=== PATIENT | male | born 1975 | race Caucasian/White ===

== ENCOUNTER 2018-02-10 17:00 | Observation (INO) | payer SELFPAY ==
[2018-02-10] MEDS ORDERED: ACETAMINOPHEN 500 MG TAB ONE (17:41)
--- NOTE | 2018-02-10 18:10 | ER ---
Nurse's Notes [facility] Name: Sajan Meléndez Age: 42 yrs Sex: Male : 1975 Arrival Date: 02/10/2018 Time: 17:02 Bed 6 Private MD: Diagnosis: Cutaneous abscess of other sites-right axilla, deep;Fever, unspecified;Hypokalemia Presentation: 02/10 17:16 Presenting complaint: Patient states: Abscess to right axilla that started this AM. aj Transition of care: patient was not received from another setting of care. Onset of symptoms was February 10, 2018. Care prior to arrival: None. 17:16 Method Of Arrival: Ambulatory aj 17:16 Acuity: DELMI 3 aj Triage Assessment: 17:17 General: Appears in no apparent distress. uncomfortable, Behavior is calm, cooperative, aj appropriate for age, Smells of alcohol. Pain: Complains of pain in right axilla. Neuro: Level of Consciousness is awake, alert, obeys commands, Oriented to person, place, time, situation. Respiratory: Airway is patent Respiratory effort is even, unlabored, Respiratory pattern is regular, symmetrical. Derm: Skin is intact, is healthy with good turgor, Skin is pink, warm \T\ dry. normal, Abscess located on right axilla has no drainage, is red. Historical: - Allergies: 17:17 Poultry; aj - Home Meds: 17:17 Klonopin 1 mg Oral tab 1 tab 2 times per day [Active]; propranolol 120 mg Oral Cs24 1 aj cap once daily [Active]; Topamax 100 mg Oral tab 1 tab 2 times per day [Active]; Primidone Oral [Active]; - PMHx: 17:17 Anxiety; ESSENTIAL TREMORS; PTSD; ulcerative colitis; aj - PSHx: 17:17 Appendectomy; nose reset x 7; foot; Knee surgery; aj - Immunization history:: Last tetanus immunization: unknown. - Social history:: Smoking status: Patient uses tobacco products, smokes one pack cigarettes per day. - Family history:: not pertinent. Screenin:30 Abuse screen: Denies threats or abuse. Denies injuries from another. Nutritional ch screening: No deficits noted. Tuberculosis screening: No symptoms or risk factors identified. Fall Risk None identified. Assessment: 18:00 General: Appears in no apparent distress. uncomfortable, Behavior is calm, cooperative, ch appropriate for age. Pain: Complains of pain in right axilla Pain currently is 9 out of 10 on a pain scale. Pain began gradually, 4 hours ago. 18:00 Neuro: No deficits noted. Respiratory: Airway is patent Respiratory effort is even, ch unlabored, Breath sounds are clear bilaterally. GI: No signs and/or symptoms were reported involving the gastrointestinal system. : No signs and/or symptoms were reported regarding the genitourinary system. Derm: Skin is diaphoretic, Skin is pale, Skin temperature is hot Abscess located on right axilla is pt abscess is approx soft ball sized, or a little larger is hot to touch, is red, is raised, tender to palpation. 19:05 Reassessment: Patient appears in no apparent distress at this time. No changes from previously documented assessment. Patient and/or family updated on plan of care and expected duration. Pain level reassessed. Patient is alert, oriented x 3, equal unlabored respirations, skin warm/dry/pink. pt states the pain medication worked for a small amount of time then it stopped working. erp notified, pt medicated per orders. 19:54 Reassessment: Patient appears in no apparent distress at this time. Patient is alert, aa1 oriented x 3, equal unlabored respirations, skin warm/dry/pink. Report given to Carly on 2nd Patient states feeling better. Vital Signs: 17:17 BP 140 / 88; Pulse 109; Resp 21; Temp 101.4; Pulse Ox 97% on R/A; Weight 88 kg; Height aj 5 ft. 7 in. (170.18 cm); Pain 10/10; 18:30 BP 135 / 84; Pulse 94; Resp 22; Pulse Ox 99% on R/A; ch 19:41 BP 110 / 70; Pulse 87; Resp 18; Temp 100.2(O); Pulse Ox 99% on R/A; Pain 6/10; aa1 17:17 Body Mass Index 30.38 (88.00 kg, 170.18 cm) ED Course: 17:02 Patient arrived in ED. mr 17:16 Triage completed. 17:17 Arm band placed on left wrist. Patient placed in waiting room. mario 17:21 Juan George MD is Attending Physician. luz 17:22 Michelle Doe, ALEXANDREA is Primary Nurse. ch 18:08 Mick Suresh MD is Hospitalizing Provider. luz 18:15 Inserted saline lock: 20 gauge in left antecubital area, using aseptic technique. Blood hb collected. 18:17 X-ray completed. Portable x-ray completed in exam room. bb2 18:18 XRAY Chest (1 view) In Process Unspecified. EDMS 18:30 Patient has correct armband on for positive identification. Bed in low position. Call light in reach. Side rails up X 1. Adult w/ patient. Pulse ox on. NIBP on. one cool blanket placed on pt. 18:30 No provider procedures requiring assistance completed. ch 18:43 Ultrasound completed. Patient tolerated well. aa4 19:26 Report given to Joan Braxton. ch 19:54 Patient admitted, IV remains in place. aa1 Administered Medications: 17:55 Drug: Tylenol 1000 mg Route: PO; hb 19:21 Follow up: Response: No adverse reaction; Marked relief of symptoms ch 18:25 Drug: morphine 4 mg Route: IVP; Site: left antecubital; hb 19:21 Follow up: Response: No adverse reaction; No change in condition ch 18:25 Drug: Zofran 4 mg Route: IVP; Site: right antecubital; hb 19:20 Follow up: Response: No adverse reaction; Marked relief of symptoms ch 18:50 Drug: NS 0.9% (30 ml/kg) 2600 ml Route: IV; Rate: bolus; Site: left antecubital; ch 19:58 Follow up: IV Status: Infusion continued upon admission aa1 18:50 Drug: vancoMYCIN 1 grams Route: IVPB; Infused Over: 2 hrs; Site: left antecubital; ch 19:58 Follow up: IV Status: Infusion continued upon admission aa1 19:10 Drug: Clindamycin 900 mg Route: IVPB; Infused Over: 30 mins; Site: right antecubital; aa1 19:59 Follow up: IV Status: Completed infusion aa1 19:12 Drug: morphine 4 mg Route: IVP; Site: left antecubital; ch 19:41 Follow up: Response: No adverse reaction; Pain is decreased aa1 19:20 Drug: Zofran 4 mg Route: IVP; Site: left antecubital; ch 19:40 Follow up: Response: No adverse reaction; Nausea is decreased aa1 19:40 CANCELLED (Other Intervention Used; liquid unavailable): Potassium Chloride 40 mEq PO aa1 once 19:40 Drug: Potassium Chloride 40 mEq Route: PO; aa1 19:56 Follow up: Response: No adverse reaction aa1 19:58 Not Given (Duplicate Order): morphine 2 mg IVP once aa1 Outcome: 18:10 Decision to Hospitalize by Provider. [facility] 19:54 Admitted to Med/surg accompanied by tech, family with patient, via wheelchair, room aa1 207, with chart, Report called to Carly 19:54 Condition: stable 19:54 Instructed on the need for admit, Demonstrated understanding of instructions. 19:59 Patient left the ED. aa1 Signatures: Dispatcher [employer] EDMichelle Nance, RN Joan La ch, RN RN aa1 Luz Hoyt RN Juan Parker MD MD cha Rivera, Maria Luz Villar aa4 Prachi Purcell RN RN hb Bock, Brittany bb2
--- NOTE | 2018-02-10 18:10 | EDPHYS ---
Physician Documentation [facility] Name: Sajan Meléndez Age: 42 yrs Sex: Male : 1975 Arrival Date: 02/10/2018 Time: 17:02 Bed 6 Private MD: ED Physician Juan George HPI: 02/10 17:53 This 42 yrs old Male presents to ER via Ambulatory with complaints of Abscess.luz 17:53 the patient presents with a swollen area of the right arm and right axilla. luz Description: erythematous, fluctuant, hot, swollen. Onset: The symptoms/episode began/occurred 2 day(s) ago. Possible cause(s): unknown. Associated signs and symptoms: The patient has no apparent associated signs or symptoms. Severity of symptoms: At their worst the symptoms were mild, moderate, in the emergency department the symptoms are unchanged. The patient has not experienced similar symptoms in the past. Historical: - Allergies: 17:17 Poultry; aj - Home Meds: 17:17 Klonopin 1 mg Oral tab 1 tab 2 times per day [Active]; propranolol 120 mg Oral Cs24 1 aj cap once daily [Active]; Topamax 100 mg Oral tab 1 tab 2 times per day [Active]; Primidone Oral [Active]; - PMHx: 17:17 Anxiety; ESSENTIAL TREMORS; PTSD; ulcerative colitis; aj - PSHx: 17:17 Appendectomy; nose reset x 7; foot; Knee surgery; aj - Immunization history:: Last tetanus immunization: unknown. - Social history:: Smoking status: Patient uses tobacco products, smokes one pack cigarettes per day. - Family history:: not pertinent. ROS: 17:53 Eyes: Negative for injury, pain, redness, and discharge, ENT: Negative for injury, luz pain, and discharge, Neck: Negative for injury, pain, and swelling, Cardiovascular: Negative for chest pain, palpitations, and edema, Respiratory: Negative for shortness of breath, cough, wheezing, and pleuritic chest pain, Abdomen/GI: Negative for abdominal pain, nausea, vomiting, diarrhea, and constipation, Back: Negative for injury and pain, : Negative for injury, bleeding, discharge, and swelling, Skin: Negative for injury, rash, and discoloration, Neuro: Negative for headache, weakness, numbness, tingling, and seizure, Psych: Negative for depression, anxiety, suicide ideation, homicidal ideation, and hallucinations, Allergy/Immunology: Negative for hives, rash, and allergies, Endocrine: Negative for neck swelling, polydipsia, polyuria, polyphagia, and marked weight changes, Hematologic/Lymphatic: Negative for swollen nodes, abnormal bleeding, and unusual bruising. 17:53 Constitutional: Positive for body aches, chills. 17:53 MS/extremity: Positive for decreased range of motion, pain, swelling, tenderness, warmth, of the right arm. Exam: 17:53 Constitutional: This is a well developed, well nourished patient who is awake, alert, luz and in no acute distress. Head/Face: Normocephalic, atraumatic. Eyes: Pupils equal round and reactive to light, extra-ocular motions intact. Lids and lashes normal. Conjunctiva and sclera are non-icteric and not injected. Cornea within normal limits. Periorbital areas with no swelling, redness, or edema. ENT: Nares patent. No nasal discharge, no septal abnormalities noted. Tympanic membranes are normal and external auditory canals are clear. Oropharynx with no redness, swelling, or masses, exudates, or evidence of obstruction, uvula midline. Mucous membranes moist. Neck: Trachea midline, no thyromegaly or masses palpated, and no cervical lymphadenopathy. Supple, full range of motion without nuchal rigidity, or vertebral point tenderness. No Meningismus. Chest/axilla: Normal chest wall appearance and motion. Nontender with no deformity. No lesions are appreciated. Cardiovascular: Regular rate and rhythm with a normal S1 and S2. No gallops, murmurs, or rubs. Normal PMI, no JVD. No pulse deficits. Respiratory: Lungs have equal breath sounds bilaterally, clear to auscultation and percussion. No rales, rhonchi or wheezes noted. No increased work of breathing, no retractions or nasal flaring. Abdomen/GI: Soft, non-tender, with normal bowel sounds. No distension or tympany. No guarding or rebound. No evidence of tenderness throughout. Back: No spinal tenderness. No costovertebral tenderness. Full range of motion. Male : Normal genitalia with no discharge or lesions. MS/ Extremity: Pulses equal, no cyanosis. Neurovascular intact. Full, normal range of motion. Neuro: Awake and alert, GCS 15, oriented to person, place, time, and situation. Cranial nerves II-XII grossly intact. Motor strength 5/5 in all extremities. Sensory grossly intact. Cerebellar exam normal. Normal gait. Psych: Awake, alert, with orientation to person, place and time. Behavior, mood, and affect are within normal limits. 17:53 Skin: cellulitis, that is mild, that is moderate, induration, that is moderate is noted. Vital Signs: 17:17 BP 140 / 88; Pulse 109; Resp 21; Temp 101.4; Pulse Ox 97% on R/A; Weight 88 kg; Height aj 5 ft. 7 in. (170.18 cm); Pain 10/10; 18:30 BP 135 / 84; Pulse 94; Resp 22; Pulse Ox 99% on R/A; ch 19:41 BP 110 / 70; Pulse 87; Resp 18; Temp 100.2(O); Pulse Ox 99% on R/A; Pain 6/10; aa1 17:17 Body Mass Index 30.38 (88.00 kg, 170.18 cm) aj MDM: 17:21 Patient medically screened. luz 17:22 Patient medically screened. [facility] 17:53 Data reviewed: vital signs, nurses notes, lab test result(s), EKG, radiologic studies, [facility] plain films, ultrasound. 02/10 17:53 Order name: Basic Metabolic Panel [facility] 02/10 17:53 Order name: BNP [facility] 02/10 17:53 Order name: CBC with Diff; Complete Time: 19:22 luz 02/10 17:53 Order name: Ckmb; Complete Time: 19:22 luz 02/10 17:53 Order name: CPK; Complete Time: 19:22 [facility] 02/10 17:53 Order name: LFT's; Complete Time: 19:22 luz 02/10 17:53 Order name: Magnesium; Complete Time: 19:22 luz 02/10 17:53 Order name: PT-INR; Complete Time: 19:22 luz 02/10 17:53 Order name: Ptt, Activated; Complete Time: 19:22 luz 02/10 17:53 Order name: Troponin (emerg Dept Use Only); Complete Time: 19:22 luz 02/10 17:53 Order name: Basic Metabolic Panel; Complete Time: 19:22 EDMS 02/10 17:53 Order name: BNP B-Type Natriuretic Peptide; Complete Time: 19:22 EDMS 02/10 18:17 Order name: Basic Metabolic Panel EDMS 02/10 18:17 Order name: Basic Metabolic Panel EDMS 02/10 17:53 Order name: XRAY Chest (1 view); Complete Time: 19:22 luz 02/10 17:53 Order name: US Extrmty Nonvasular Limited luz 02/10 18:17 Order name: CBC with Automated Diff EDMS 02/10 18:17 Order name: CBC with Automated Diff EDMS 02/10 18:17 Order name: Lipase EDMS 02/10 18:17 Order name: Liver (Hepatic) Function EDMS 02/10 18:17 Order name: Liver (Hepatic) Function EDMS 02/10 18:24 Order name: Lactate 02/10 19:04 Order name: US; Complete Time: 19:22 EDMS 02/10 19:09 Order name: Lactate; Complete Time: 19:22 EDMS 02/10 17:53 Order name: EKG; Complete Time: 17:54 luz 02/10 17:53 Order name: Cardiac monitoring; Complete Time: 18:26 luz 02/10 17:53 Order name: EKG - Nurse/Tech; Complete Time: 19:35 luz 02/10 17:53 Order name: IV Saline Lock; Complete Time: 18:26 luz 02/10 17:53 Order name: Labs collected and sent; Complete Time: 18:26 luz 02/10 17:53 Order name: O2 Per Protocol; Complete Time: 18:26 luz 02/10 17:53 Order name: O2 Sat Monitoring; Complete Time: 18:26 luz 02/10 18:17 Order name: CONS Pharmacy Consult EDNE 02/10 18:17 Order name: NPO EDNE 02/10 19:25 Order name: PO challenge; Complete Time: 19:39 luz Administered Medications: 17:55 Drug: Tylenol 1000 mg Route: PO; hb 19:21 Follow up: Response: No adverse reaction; Marked relief of symptoms ch 18:25 Drug: morphine 4 mg Route: IVP; Site: left antecubital; hb 19:21 Follow up: Response: No adverse reaction; No change in condition ch 18:25 Drug: Zofran 4 mg Route: IVP; Site: right antecubital; hb 19:20 Follow up: Response: No adverse reaction; Marked relief of symptoms ch 18:50 Drug: NS 0.9% (30 ml/kg) 2600 ml Route: IV; Rate: bolus; Site: left antecubital; ch 19:58 Follow up: IV Status: Infusion continued upon admission aa1 18:50 Drug: vancoMYCIN 1 grams Route: IVPB; Infused Over: 2 hrs; Site: left antecubital; ch 19:58 Follow up: IV Status: Infusion continued upon admission aa1 19:10 Drug: Clindamycin 900 mg Route: IVPB; Infused Over: 30 mins; Site: right antecubital; aa1 19:59 Follow up: IV Status: Completed infusion aa1 19:12 Drug: morphine 4 mg Route: IVP; Site: left antecubital; ch 19:41 Follow up: Response: No adverse reaction; Pain is decreased aa1 19:20 Drug: Zofran 4 mg Route: IVP; Site: left antecubital; ch 19:40 Follow up: Response: No adverse reaction; Nausea is decreased aa1 19:40 CANCELLED (Other Intervention Used; liquid unavailable): Potassium Chloride 40 mEq PO aa1 once 19:40 Drug: Potassium Chloride 40 mEq Route: PO; aa1 19:56 Follow up: Response: No adverse reaction aa1 19:58 Not Given (Duplicate Order): morphine 2 mg IVP once aa1 Disposition: 02/10/18 18:10 Hospitalization ordered by Mick Suresh for Observation. Preliminary diagnosis are Cutaneous abscess of other sites - right axilla, deep, Fever, unspecified, Hypokalemia. - Bed requested for Telemetry/MedSurg (observation). - Status is Observation. aa1 - Condition is Fair. - Problem is new. - Symptoms are unchanged. UTI on Admission? No Signatures: Dispatcher [employer] EDMichelle Nance RN RN ch Lewis, Kimberly, RN RN kl Kern, Alissa, RN RN aa1 Luz Hoyt RN RN aj Anderson, Corey, MD MD cha Baxter, Heather, RN RN hb Corrections: (The following items were deleted from the chart) 19:40 19:25 Potassium Chloride Liquid 40 mEq PO once ordered. luz [facility]
[2018-02-10] MEDS ORDERED: ACETAMINOPHEN 325 MG TABLET PO PRN (18:14)
[2018-02-10] MEDS ORDERED: ONDANSETRON 4 MG/2 ML VIAL IV PRN (18:14)
[2018-02-10 18:34] LABS: Absolute Lymphocytes (CBC) 1.3 K/uL (0.7-4.9); Absolute Monocytes 1.2 K/uL (0.1-1.3); Absolute Neutrophil 11.7 K/uL (1.8-8.0); Basophils % 0.5 % (0-1.3); Eosinophils % 2.2 % (0-4.4); Hematocrit 46.3 % (39.6-49.0); Lymphocytes % 8.9 % (15.3-44.8); MCH 30.6 pg (27.0-35.0); MCV 90.9 fL (80-100); MPV 8.9 fL (7.6-11.3); Monocytes % 8.1 % (3.3-12.3); RBC Red Blood Cell Count 5.09 M/uL (4.33-5.43)
[2018-02-10] MEDS ORDERED: MORPHINE 4 MG/ML SYR ONE ×2 (18:37→19:26)
[2018-02-10] MEDS ORDERED: ONDANSETRON 4 MG/2 ML VIAL ONE ×2 (18:37→19:26)
[2018-02-10 18:38] LABS: Protime INR 0.94
[2018-02-10 18:47] LABS: Potassium 3.2 mEq/L (3.6-5.0)
[2018-02-10 18:53] LABS: Albumin 4.1 g/dL (3.2-5.5); Bilirubin Direct 0.1 mg/dL (0-0.2); Bilirubin Total 0.5 mg/dL (0.3-1.2); Magnesium 1.8 mg/dL (1.8-2.5); Protein, Total 7.3 g/dL (6.0-8.3)
[2018-02-10 18:57] LABS: CKMB Creatine Kinase MB 2.7 ng/ml (0.3-4.0)
--- NOTE | 2018-02-10 19:01 | RAD REPORT ---
EXAM DESCRIPTION: RAD - Chest Single View - 02/10/2018 6:18 pm CLINICAL HISTORY: Right axillary abscess COMPARISON: December 2017 TECHNIQUE: AP portable chest image was obtained 1809 hours . FINDINGS: Lungs are clear. Heart and vasculature are normal. No measurable pleural effusion and no p neumothorax. No gross bony abnormality seen. No acute aortic findings suspected. IMPRESSION: No acute cardiopulmonary process. No significant interval change.
--- NOTE | 2018-02-10 19:04 | RAD REPORT ---
EXAM DESCRIPTION: US - Extremity Nonvascular Limited - 02/10/2018 6:43 pm CLINICAL HISTORY: Pain, soft tissue swelling COMPARISON: None. FINDINGS: Sonographic evaluation of the right axilla performed. There is a general edematous appeara nce to the soft tissues in this region. Approximately 1-2 cm deep to the skin surface there is a 3.5 x 3.9 x 0.5 hypoechoic collection. This could be reactive fluid, old seroma or even a small abscess. No other defined solid a cystic mass seen. IMPRESSION: Approximately 3.5 x 3.9 x 0.5 focal collection 1.5 cm deep to the skin surface. Abscess, seroma and reactive fluid can have a similar appearance.
[2018-02-10] MEDS ORDERED: NA CHLORIDE 0.9% 3,000 ML ONE (19:11)
[2018-02-10] MEDS ORDERED: VANCOMYCIN/NS 1 gm 1 GM/250 ML BAG ONE (19:11)
[2018-02-10] MEDS ORDERED: CLINDAMYCIN 900MG/D5W 900 MG/50 ML BAG IV ONE (19:11)
[2018-02-10] MEDS ORDERED: POTASSIUM CL SA 10 MEQ TAB PO ONE (19:56)
[2018-02-10] MEDS ORDERED: VANCOMYCIN/NS 1 gm 1 GM/250 ML BAG IVPB SCH (21:00)
[2018-02-10 21:20] VITALS: BMI 27.1
[2018-02-10] MEDS: MORPHINE 4 MG/ML SYR IV PRN (21:29)
[2018-02-10] MEDS: D5 0.45 NS 1,000 ML IV SCH (21:29)
[2018-02-11] MEDS: MORPHINE 4 MG/ML SYR IV PRN ×2 (01:31→05:49)
[2018-02-11] MEDS ORDERED: CLINDAMYCIN IV 150 MG/ML (6 mL) VIAL ONE (01:36)
[2018-02-11] MEDS ORDERED: NA CHLORIDE 0.9% 200 ML ONE (01:38)
[2018-02-11 05:29] LABS: Absolute Monocytes 1.5 K/uL (0.1-1.3); Absolute Neutrophil 8.6 K/uL (1.8-8.0); Basophils % 0.5 % (0-1.3); Eosinophils % 3.2 % (0-4.4); Hematocrit 41.2 % (39.6-49.0); Lymphocytes % 16.2 % (15.3-44.8); MCH 31.5 pg (27.0-35.0); MCV 91.2 fL (80-100); MPV 8.9 fL (7.6-11.3); Monocytes % 11.6 % (3.3-12.3); RBC Red Blood Cell Count 4.52 M/uL (4.33-5.43)
[2018-02-11] MEDS: D5 0.45 NS 1,000 ML IV SCH ×2 (05:46→11:00)
[2018-02-11] MEDS: CLINDAMYCIN PHOSPHATE 900 MG in NA CHLORIDE 0.9% 50 ML IV SCH ×3 (05:48)
[2018-02-11 05:50] LABS: Albumin 3.3 g/dL (3.2-5.5); Bilirubin Direct 0.2 mg/dL (0-0.2); Potassium 3.8 mEq/L (3.6-5.0); Protein, Total 5.9 g/dL (6.0-8.3)
[2018-02-11] MEDS ORDERED: VANCOMYCIN/NS 1 gm 1 GM/250 ML BAG IVPB SCH (07:00)
--- NOTE | 2018-02-11 07:36 | EKG ---
Test Date: 2018-02-10 Test Time: 19:14:21 Motor Installer: TYSON MEASUREMENT RESULTS: Intervals: Rate: 95 GA: 148 QRSD: 84 QT: 356 QTc: 447 [place]: P: 69 GA: 148 QRS: 75 T: 45 INTERPRETIVE STATEMENTS: Normal sinus rhythm Normal ECG Compared to ECG 10/04/2017 22:22:01 No significant changes Electronically Signed On 02-11-18 07:34:54 CDT by Carson Casey
--- NOTE | 2018-02-11 08:02 | P.HP ---
Date of Service: 02/11/18 PC: 42-year-old male presented to the emergency room with pain in his right axilla HPC: Patient is been experiencing pain and discomfort for the last few days. 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 PMH: Essential tremor PSHx: Negative SOC: Allergic to poultry, on medications for his essential tremor (see nurse's notes) SYS REVIEW: No cough, wheeze, shortness of breath. No chest pain or palpitations. Denies any urinary complaints. Good exercise tolerance O/E awake alert very uncomfortable HEENT: Not jaundiced Chest: Clear ABD: Soft LOCO: Has a palpable mass in his right axilla. A mass is extremely tender to the touch. No evidence of any cuts or injuries along his arm. DATA: Ultrasound demonstrates abscess IMPRESSION: Abscess of the right axilla PLAN: I will take him to the operating room for a incision, drainage, sharp debridement of this abscess of the right axilla. The risks of this procedure have been discussed. The possibility of bleeding, infection, injury to blood vessels and nerves has been described. The possible need for further surgeries and procedures was discussed. He understands and wants us to proceed.
[2018-02-11] MEDS ORDERED: PROPOFOL 200 MG/20 ML VIAL IV ONE (08:11)
[2018-02-11] MEDS ORDERED: ONDANSETRON 4 MG/2 ML VIAL ONE (08:12)
[2018-02-11] MEDS ORDERED: MIDAZOLAM HCL 2 MG/2 ML INJ ONE ×2 (08:12→08:19)
[2018-02-11] MEDS ORDERED: LIDOCAINE 2% MPF 5 ML VIAL ONE (08:12)
[2018-02-11] MEDS ORDERED: FENTANYL CITR 100 MCG/2 ML ONE (08:12)
--- NOTE | 2018-02-11 08:28 | P.OP ---
Preoperative diagnosis: Mass in the right axilla Postoperative diagnosis: The same Primary procedure: Incision, drainage, of mass and right axilla Anesthesia: Genera Estimated blood loss: Less than 10 cc Specimen: None Operative Technique: The patient brought the operating room placed supine on the table. After the induction of adequate general anesthesia, the area of the right axilla was prepped with a Betadine solution, and he was draped in usual aseptic manner. Maximum fluctuance was identified. This was then injected with 0.25% Marcaine. A skin incision was made. This brought down through the skin and subcutaneous tissue. We could palpate a mass approximately 1.5 2 cm in size of the right axilla. Using a hemostat we entered this mass. The hemostat was spread. This leads is into a cavity but appear to be just in the fat itself. The [place] was now palpated internally. No other masses were palpable. A 2. Nylon was brought into the wound and out more antrum superiorly. The suture was then tied on itself. Could drainage having been established, a sterile dressing was applied. At the end of the procedure he was stable when sent to the recovery room. Needle sponge instrument count were correct. Complications: None Drain(s): Other (#2 Nylon) Transferred to: Recovery Room Condition: Good
[2018-02-11] MEDS ORDERED: MORPHINE 4 MG/ML SYR IV PRN (08:41)
[2018-02-11] MEDS ORDERED: HYDROCODONE/APAP 7.5/325 MG TAB PO PRN (08:41)
[2018-02-11 08:56] VITALS: O2SAT 98
[2018-02-11] MEDS ORDERED: SMZ./TMP. 800/160 MG TABLET PO SCH (09:00)
[2018-02-11] MEDS ORDERED: D5 0.45 NS 0 ML IV ONE (09:19)
[2018-02-11 12:48] VITALS: BP 107/57; TEMP 98.5
== END 2018-02-11 15:23 | disposition home or self-care (01) ==
LOC: ER 17:00 → ERHOLD 18:12 → 2ND 19:50
PROVIDERS: ADMIT Surgery; ATTEND Surgery
PROC: 0J9D0ZZ Drainage of Right Upper Arm Subcutaneous Tissue and Fascia, Open Approach (ICD-10-PCS; principal; 2018-02-11 08:00)
DX: L02.411 Cutaneous abscess of right axilla (principal); G25.0 Essential tremor
CPT/HCPCS: 36415; 71045; 76882; 80048; 80076; 82550; 82553; 83605; 83735; 83880; 84484; 85025; 85610; 85730; 87040; 93005; 99285; G0378; J2250; J2405; J3010; J3370; J7030; S0077

== ENCOUNTER 2018-12-14 17:51 | Emergency (ER) | payer SELFPAY ==
--- NOTE | 2018-12-14 19:53 | ER ---
Nurse's Notes [facility] Name: Sajan Meléndez Age: 43 yrs Sex: Male : 1975 Arrival Date: 12/14/2018 Time: 17:55 Bed 28 Private MD: NONE, NONE Diagnosis: Person with feared health complaint in whom no diagnosis is made Presentation: 12/14 18:26 Presenting complaint: Patient states: Was giving himself injection in the R glute, sg reports having the need stuck in the R glute muscle, 22 G 1 1/4 inch length. Transition of care: patient was not received from another setting of care. Onset of symptoms was December 14, 2018. Risk Assessment: Do you want to hurt yourself or someone else? Patient reports no desire to harm self or others. Initial Sepsis Screen: Does the patient meet any 2 criteria? No. Patient's initial sepsis screen is negative. Does the patient have a suspected source of infection? No. Patient's initial sepsis screen is negative. Care prior to arrival: None. 18:26 Method Of Arrival: Ambulatory sg 18:26 Acuity: DELMI 4 sg Historical: - Allergies: 18:28 Poultry; sg - Home Meds: 18:41 Klonopin 1 mg Oral tab 1 tab 2 times per day [Active]; Primidone Oral [Active]; ca1 propranolol 120 mg Oral Cs24 1 cap once daily [Active]; Topamax 100 mg Oral tab 1 tab 2 times per day [Active]; - PMHx: 18:28 Anxiety; ESSENTIAL TREMORS; PTSD; ulcerative colitis; sg - PSHx: 18:28 Appendectomy; nose reset x 7; foot; Knee surgery; sg - Immunization history:: Adult Immunizations up to date. - Social history:: Smoking status: Patient/guardian denies using tobacco. - Ebola Screening: : Patient negative for fever greater than or equal to 101.5 degrees Fahrenheit, and additional compatible Ebola Virus Disease symptoms Patient denies exposure to infectious person Patient denies travel to an Ebola-affected area in the 21 days before illness onset No symptoms or risks identified at this time. Screenin:34 Abuse screen: Denies threats or abuse. Denies injuries from another. Nutritional ca1 screening: No deficits noted. Tuberculosis screening: No symptoms or risk factors identified. Fall Risk None identified. Assessment: 18:34 General: Appears in no apparent distress. uncomfortable, Behavior is calm, cooperative, ca1 appropriate for age. Pain: Complains of pain in right lower back Pain does not radiate. Pain currently is 10 out of 10 on a pain scale. Pain began 1 hour ago. after pt injected himself with testosterone and "break and left" the needle where he injected himself. Neuro: Level of Consciousness is awake, alert, obeys commands, Oriented to person, place, time, situation. Cardiovascular: Heart tones S1 S2 present Capillary refill < 3 seconds. Respiratory: Airway is patent Respiratory effort is even, unlabored, Respiratory pattern is regular, symmetrical, Breath sounds are clear bilaterally. GI: No signs and/or symptoms were reported involving the gastrointestinal system. : No signs and/or symptoms were reported regarding the genitourinary system. EENT: No signs and/or symptoms were reported regarding the EENT system. Derm: Skin is intact, Skin is pink, warm \\T\\ dry. Musculoskeletal: Circulation, motion, and sensation intact. Capillary refill < 3 seconds. 19:45 Reassessment: Patient appears in no apparent distress at this time. Patient and/or ca1 family updated on plan of care and expected duration. Pain level reassessed. Patient is alert, oriented x 3, equal unlabored respirations, skin warm/dry/pink. Pt from Naya Abdul NP at bedside. Vital Signs: 18:28 BP 130 / 92; Pulse 76; Resp 17; Temp 98.2; Pulse Ox 99% ; Pain 6/10; sg 19:56 BP 132 / 89; Pulse 75; Resp 18; Pulse Ox 99% on R/A; ca1 ED Course: 17:55 Patient arrived in ED. tw3 17:55 NONE, NONE is Private Physician. tw3 18:26 Arm band placed on. sg 18:27 Leslie Lantigua, ALEXANDREA is Primary Nurse. ca1 18:27 Triage completed. sg 18:32 Claudette Huang FNP-C is PHCP. kb 18:32 Tyler Rivas MD is Attending Physician. kb 18:34 Patient has correct armband on for positive identification. Bed in low position. Call ca1 light in reach. Side rails up X 1. Pulse ox on. NIBP on. Warm blanket given. 19:59 Pelvis W/obliques In Process Unspecified. EDMS 20:21 No provider procedures requiring assistance completed. Patient did not have IV access ca1 during this emergency room visit. Administered Medications: No medications were administered Outcome: 19:52 Discharge ordered by . renetta 20:21 Discharged to home ambulatory, with significant other. ca1 20:21 Condition: stable 20:21 Discharge instructions given to patient, Instructed on discharge instructions, follow up and referral plans. Demonstrated understanding of instructions, follow-up care. 20:22 Patient left the ED. ca1 Signatures: Dispatcher [employer] EDMS Claudette Huang, RECEIVABLE CLERK-C RECEIVABLE CLERK-CkHany Howard, RN RN sg Juan Manuel, Ambar tw3 Leslie Lantigua RN RN ca1
--- NOTE | 2018-12-14 19:53 | EDPHYS ---
Physician Documentation [facility] Name: Sajan Meléndez Age: 43 yrs Sex: Male : 1975 Arrival Date: 12/14/2018 Time: 17:55 Bed 28 Private MD: NONE, NONE ED Physician Tyler Rivas HPI: 12/14 19:54 This 43 yrs old Male presents to ER via Ambulatory with complaints of Needle kb stuck in buttocks. 19:54 The patient or guardian reports the patient has a suspected foreign body, of the right kb buttock. The reported likely foreign body is medical needle. Onset: The symptoms/episode began/occurred just prior to arrival. Current symptoms: foreign body sensation. Treatment Prior to Arrival: tried to remove, but couldn't get out. The patient has not experienced similar symptoms in the past. The patient has not recently seen a physician. Pt reports he was injecting his testosterone and the needle broke off inside the skin.. Historical: - Allergies: 18:28 Poultry; sg - Home Meds: 18:41 Klonopin 1 mg Oral tab 1 tab 2 times per day [Active]; Primidone Oral [Active]; ca1 propranolol 120 mg Oral Cs24 1 cap once daily [Active]; Topamax 100 mg Oral tab 1 tab 2 times per day [Active]; - PMHx: 18:28 Anxiety; ESSENTIAL TREMORS; PTSD; ulcerative colitis; sg - PSHx: 18:28 Appendectomy; nose reset x 7; foot; Knee surgery; sg - Immunization history:: Adult Immunizations up to date. - Social history:: Smoking status: Patient/guardian denies using tobacco. - Ebola Screening: : Patient negative for fever greater than or equal to 101.5 degrees Fahrenheit, and additional compatible Ebola Virus Disease symptoms Patient denies exposure to infectious person Patient denies travel to an Ebola-affected area in the 21 days before illness onset No symptoms or risks identified at this time. ROS: 19:53 Constitutional: Negative for fever, chills, and weight loss, Cardiovascular: Negative kb for chest pain, palpitations, and edema, Respiratory: Negative for shortness of breath, cough, wheezing, and pleuritic chest pain, Abdomen/GI: Negative for abdominal pain, nausea, vomiting, diarrhea, and constipation, MS/Extremity: Negative for injury and deformity, Neuro: Negative for headache, weakness, numbness, tingling, and seizure. 19:53 Skin: Positive for of the right gluteus silvia, FB sensation. Exam: 19:53 Constitutional: This is a well developed, well nourished patient who is awake, alert, kb and in no acute distress. Head/Face: Normocephalic, atraumatic. Chest/axilla: Normal chest wall appearance and motion. Nontender with no deformity. No lesions are appreciated. Cardiovascular: Regular rate and rhythm with a normal S1 and S2. No gallops, murmurs, or rubs. Normal PMI, no JVD. No pulse deficits. Respiratory: Lungs have equal breath sounds bilaterally, clear to auscultation and percussion. No rales, rhonchi or wheezes noted. No increased work of breathing, no retractions or nasal flaring. Abdomen/GI: Soft, non-tender, with normal bowel sounds. No distension or tympany. No guarding or rebound. No evidence of tenderness throughout. MS/ Extremity: Pulses equal, no cyanosis. Neurovascular intact. Full, normal range of motion. Neuro: Awake and alert, GCS 15, oriented to person, place, time, and situation. Cranial nerves II-XII grossly intact. Motor strength 5/5 in all extremities. Sensory grossly intact. Cerebellar exam normal. Normal gait. 19:53 Skin: injury, puncture(s), that are superficial, of the right gluteus silvia. Vital Signs: 18:28 BP 130 / 92; Pulse 76; Resp 17; Temp 98.2; Pulse Ox 99% ; Pain 6/10; sg 19:56 BP 132 / 89; Pulse 75; Resp 18; Pulse Ox 99% on R/A; ca1 MDM: 18:32 Patient medically screened. kb 19:52 Data reviewed: vital signs, nurses notes. Data interpreted: Pulse oximetry: on room air kb is 99 %. Interpretation: normal. Counseling: I had a detailed discussion with the patient and/or guardian regarding: the historical points, exam findings, and any diagnostic results supporting the discharge/admit diagnosis, radiology results, the need for outpatient follow up, a family practitioner, to return to the emergency department if symptoms worsen or persist or if there are any questions or concerns that arise at home. 20:30 ED course: I took apart the syringe that the pt brought in. Found the needle below a kb spring system that apparently retracted it for safety. 12/14 19:10 Order name: Pelvis W/obliques EDNE Administered Medications: No medications were administered Disposition: 12/15 12:38 Co-signature as Attending Physician, Tyler Rivas MD. rn Disposition: 12/14/18 19:52 Discharged to Home. Impression: Person with feared health complaint in whom no diagnosis is made. - Condition is Stable. - Discharge Instructions: How and Where to Give Intramuscular Injections Using a Syringe and Vial. - Medication Reconciliation Form, Thank You Letter, Antibiotic Education, Prescription Opioid Use form. - Follow up: Emergency Department; When: As needed; Reason: Worsening of condition. Follow up: Private Physician; When: 2 - 3 days; Reason: Recheck today's complaints, Continuance of care, Re-evaluation by your physician. Signatures: Dispatcher [employer] [facility] Claudette Huang, MANAGER [employer]-C MANAGER [employer]-Hany Vicente, RN RN sg Tyler Rivas MD MD rn AcLeslie lr, RN RN ca1 Corrections: (The following items were deleted from the chart) 12/14 19:10 18:41 Hip Right 2 View+RAD.RAD.BRZ ordered. [facility] 20:22 19:52 12/14/2018 19:52 Discharged to Home. Impression: Person with feared health ca1 complaint in whom no diagnosis is made. Condition is Stable. Forms are Medication Reconciliation Form, Thank You Letter, Antibiotic Education, Prescription Opioid Use. Follow up: Emergency Department; When: As needed; Reason: Worsening of condition. Follow up: Private Physician; When: 2 - 3 days; Reason: Recheck today's complaints, Continuance of care, Re-evaluation by your physician. kb
[2018-12-14 20:39] VITALS: TEMP 98.2; O2SAT 99
[2018-12-14 20:41] VITALS: BP 132/89
--- NOTE | 2018-12-14 20:51 | RAD REPORT ---
EXAM DESCRIPTION: RAD - Pelvis W/obliques - 12/14/2018 7:58 pm CLINICAL HISTORY: Foreign body in right gluteus FINDINGS: A radiopaque foreign body is not visualized. If strong clinical suspicion persists that a foreign body is present then CT would be recommended
== END 2018-12-14 20:22 | disposition home or self-care (01) ==
LOC: ER 17:51
DX: Z71.1 Person with feared health complaint in whom no diagnosis is made (principal); F41.9 Anxiety disorder, unspecified; F43.10 Post-traumatic stress disorder, unspecified; G25.0 Essential tremor; Z79.899 Other long term (current) drug therapy
CPT/HCPCS: 72190; 99283

== ENCOUNTER 2019-02-02 06:18 | Emergency (ER) | payer SELFPAY ==
[2019-02-02] MEDS ORDERED: FENTANYL CITR 100 MCG/2 ML ONE (07:14)
[2019-02-02] MEDS ORDERED: NA CHLORIDE 0.9% 1,000 ML ONE (07:14)
[2019-02-02 07:26] LABS: Absolute Lymphocytes (CBC) 1.8 K/uL (0.7-4.9); Absolute Monocytes 0.6 K/uL (0.1-1.3); Absolute Neutrophil 5.4 K/uL (1.8-8.0); Hematocrit 45.6 % (39.6-49.0); Lymphocytes % 21.4 % (15.3-44.8); MPV 8.5 fL (7.6-11.3); Monocytes % 7.2 % (3.3-12.3)
[2019-02-02 07:53] LABS: Bilirubin Direct 0.1 mg/dL (0-0.2); Bilirubin Total 0.5 mg/dL (0.2-1.0); Potassium 3.3 mmol/L (3.5-5.1)
[2019-02-02 07:54] LABS: Albumin 3.3 g/dL (3.4-5.0); Protein, Total 6.8 g/dL (6.4-8.2)
--- NOTE | 2019-02-02 08:37 | RAD REPORT ---
EXAM DESCRIPTION: CTAbdomen Pelvis W Contrast - 02/02/2019 8:30 am CLINICAL HISTORY: Abdominal pain. ABD PAIN COMPARISON: Abdomen Pelvis W Contrast dated 12/25/2017; Abdomen Pelvis W Contrast dated 06/05/2016 ; Abdomen Pelvis W Contrast dated 05/15/2016; CT ABD PELVIS W CONTRAST dated 11/06/2014 TECHNIQUE: Biphasic CT imaging of the abdomen and pelvis was performed with 100 ml non-ionic IV cont rast. All CT scans are performed using dose optimization technique as appropriate and may include automated exposure control or mA/KV adjustment according to patient size. FINDINGS: The lung bases are clear. Small hiatal hernia. The liver, spleen, pancreas, adrenal glands and kidneys are within normal limits. No bowel obstruction, free air, free fluid or abscess. Appendectomy. No evidence of significant lym phadenopathy. No suspicious bony findings. IMPRESSION: No acute intra-abdominal or pelvic finding.
--- NOTE | 2019-02-02 08:43 | EDPHYS ---
Physician Documentation [facility] Name: Sajan Meléndez Age: 43 yrs Sex: Male : 1975 Arrival Date: 02/02/2019 Time: 06:19 Bed 5 Private MD: ED Physician Tyler Rivas HPI: 02/02 07:47 This 43 yrs old Male presents to ER via Ambulatory with complaints of snw Abdominal Pain. 07:47 The patient presents with abdominal pain in the lower abdomen, in the left lower snw quadrant. Onset: The symptoms/episode began/occurred gradually, 2 week(s) ago, and became persistent. The symptoms do not radiate. Associated signs and symptoms: none. The symptoms are described as crampy. Modifying factors: The symptoms are alleviated by nothing. Severity of pain: At its worst the pain was moderate severe. "a long time ago". The patient has not recently seen a physician, and does not have an established primary care provider. sees Dr. Peterson for essential tremor, takes Klonopin, Propranolol, and Topamax. Historical: - Allergies: 06:31 Poultry; lp1 - Home Meds: 06:31 Klonopin 1 mg Oral tab 1 tab 2 times per day [Active]; Primidone Oral [Active]; lp1 propranolol 120 mg Oral Cs24 1 cap once daily [Active]; Topamax 100 mg Oral tab 1 tab 2 times per day [Active]; - PMHx: 06:31 Anxiety; ESSENTIAL TREMORS; PTSD; ulcerative colitis; lp1 - PSHx: 06:31 Appendectomy; Knee surgery; lp1 - Immunization history:: Adult Immunizations up to date. - Social history:: Smoking status: Patient uses tobacco products, denies chronic smoking, but will smoke occasionally. - Ebola Screening: : No symptoms or risks identified at this time No symptoms or risks identified at this time. ROS: 07:46 Constitutional: Negative for fever, chills, and weight loss, Eyes: Negative for injury, snw pain, redness, and discharge, ENT: Negative for injury, pain, and discharge, Neck: Negative for injury, pain, and swelling, Cardiovascular: Negative for chest pain, palpitations, and edema, Respiratory: Negative for shortness of breath, cough, wheezing, and pleuritic chest pain, Back: Negative for injury and pain, : Negative for injury, bleeding, discharge, and swelling, MS/Extremity: Negative for injury and deformity, Skin: Negative for injury, rash, and discoloration, Neuro: Negative for headache, weakness, numbness, tingling, and seizure. 07:46 Abdomen/GI: Positive for abdominal pain, diarrhea, Negative for nausea, vomiting, fever. Exam: 07:46 Constitutional: This is a well developed, well nourished patient who is awake, alert, snw and in no acute distress. Head/Face: Normocephalic, atraumatic. Eyes: Pupils equal round and reactive to light, extra-ocular motions intact. Lids and lashes normal. Conjunctiva and sclera are non-icteric and not injected. Cornea within normal limits. Periorbital areas with no swelling, redness, or edema. ENT: Nares patent. No nasal discharge, no septal abnormalities noted. Tympanic membranes are normal and external auditory canals are clear. Oropharynx with no redness, swelling, or masses, exudates, or evidence of obstruction, uvula midline. Mucous membranes moist. Neck: Trachea midline, no thyromegaly or masses palpated, and no cervical lymphadenopathy. Supple, full range of motion without nuchal rigidity, or vertebral point tenderness. No Meningismus. Chest/axilla: Normal chest wall appearance and motion. Nontender with no deformity. No lesions are appreciated. Cardiovascular: Regular rate and rhythm with a normal S1 and S2. No gallops, murmurs, or rubs. Normal PMI, no JVD. No pulse deficits. 07:46 Back: No spinal tenderness. No costovertebral tenderness. Full range of motion. Skin: Warm, dry with normal turgor. Normal color with no rashes, no lesions, and no evidence of cellulitis. MS/ Extremity: Pulses equal, no cyanosis. Neurovascular intact. Full, normal range of motion. Neuro: Awake and alert, GCS 15, oriented to person, place, time, and situation. Cranial nerves II-XII grossly intact. Motor strength 5/5 in all extremities. Sensory grossly intact. Cerebellar exam normal. Normal gait. Psych: Awake, alert, with orientation to person, place and time. Behavior, mood, and affect are within normal limits. 07:46 Respiratory: the patient does not display signs of respiratory distress, Respirations: normal, Breath sounds: wheezing: expiratory is heard diffusely, +smoker. 07:46 Abdomen/GI: Inspection: abdomen appears normal, Bowel sounds: normal, Palpation: moderate abdominal tenderness, in the left lower quadrant. Vital Signs: 06:26 BP 152 / 91; Pulse 84; Resp 20 S; Temp 98.8(O); Pulse Ox 100% on R/A; Weight 92.53 kg cc3 (R); Height 5 ft. 7 in. (170.18 cm) (R); 08:00 BP 130 / 84; Pulse 70; Resp 18; Pulse Ox 99% on R/A; ph 08:45 BP 131 / 87; Pulse 73; Resp 18; Temp 97.8; Pulse Ox 98% on R/A; ph 06:26 Body Mass Index 31.95 (92.53 kg, 170.18 cm) cc3 MDM: 06:24 Patient medically screened. snw 08:51 Data reviewed: vital signs, nurses notes. Data interpreted: Pulse oximetry: on room air snw is 99 %. Interpretation: normal. Counseling: I had a detailed discussion with the patient and/or guardian regarding: the historical points, exam findings, and any diagnostic results supporting the discharge/admit diagnosis, lab results, radiology results, the need for outpatient follow up, to return to the emergency department if symptoms worsen or persist or if there are any questions or concerns that arise at home, smoking cessation. Special discussion: Based on the patient's Hx, exam, and Dx evaluation, there is no indication for emergent surgery or inpatient Tx. It is understood by the patient/guardian that if the Sx's persist or worsen they need to return immediately for re-evaluation. Based on the history and exam findings, there is no indication for further emergent testing or inpatient evaluation. I discussed with the patient/guardian the need to see the egg worker for further evaluation of the symptoms. I discussed with the patient/guardian the need to see the primary care provider for further evaluation of the symptoms. 02/02 06:40 Order name: Basic Metabolic Panel; Complete Time: 07:57 snw 02/02 06:40 Order name: CBC with Diff; Complete Time: 07:43 snw 02/02 06:40 Order name: Creatinine for Radiology; Complete Time: 07:50 snw 02/02 06:40 Order name: Hepatic Function; Complete Time: 07:57 snw 02/02 06:40 Order name: Lipase; Complete Time: 07:57 snw 02/02 06:40 Order name: Blood Culture* w 02/02 06:40 Order name: IV Saline Lock; Complete Time: 06:59 snw 02/02 06:40 Order name: CT Abd/Pelvis - W/Contrast; Complete Time: 08:38 snw 02/02 06:40 Order name: Labs collected and sent; Complete Time: 06:59 snw Administered Medications: 07:00 Drug: fentaNYL (PF) 25 mcg Route: IVP; Site: right antecubital; cc3 07:30 Follow up: Response: No adverse reaction; Pain is decreased ph 07:05 Drug: NS 0.9% 1000 ml Route: IV; Rate: 125 ml/hr; Site: right antecubital; cc3 09:03 Follow up: IV Status: Completed infusion ph 08:10 Drug: NS 0.9% 1000 ml Route: IV; Rate: 1 bolus; Site: right antecubital; ph 09:05 Follow up: Response: No adverse reaction; IV Status: Completed infusion ph 09:01 Drug: TORadol 30 mg Route: IVP; Site: right antecubital; ph 09:05 Follow up: Response: No adverse reaction ph 09:01 CANCELLED (Duplicate Order): TORadol 30 mg IVP once ph 09:03 Drug: K-Lyte Effervescent Tablet 50 mEq Route: PO; ph 09:05 Follow up: Response: No adverse reaction ph Disposition: 02/02/19 08:42 Discharged to Home. Impression: Diarrhea, unspecified, Lower abdominal pain, unspecified, Renal insufficiency, Hypokalemia. - Condition is Stable. - Discharge Instructions: Abdominal Pain, Adult, Food Choices to Help Relieve Diarrhea, Adult, Diarrhea, Adult, Potassium Content of Foods, Hypertension, Hypokalemia, Rehydration, Adult. - Prescriptions for Bentyl 20 mg Oral Tablet - take 1 tablet by ORAL route every 6 hours As needed; 20 tablet. - Medication Reconciliation Form, Thank You Letter, Antibiotic Education, Prescription Opioid Use, Work release form, Family Work Release form. - Follow up: Private Physician; When: 1 - 2 days; Reason: Recheck today's complaints, Continuance of care, Re-evaluation by your physician. Follow up: Fredi, Drake, MD; When: 2 - 3 days; Reason: Recheck today's complaints, Continuance of care, Re-evaluation by your physician. Signatures: Dispatcher [employer] EDKori Henderson, SKEIN DYER-C SKEIN DYER-Csnw Nancy Noe, RN RN lp1 Lora Xiong RN RN Romiegautam, Bhargavi cc3 Corrections: (The following items were deleted from the chart) 09:01 09:00 TORadol 30 mg IVP once ordered. ph ph 09:38 08:42 02/02/2019 08:42 Discharged to Home. Impression: Diarrhea, unspecified; Lower ph abdominal pain, unspecified; Renal insufficiency; Hypokalemia. Condition is Stable. Forms are Medication Reconciliation Form, Thank You Letter, Antibiotic Education, Prescription Opioid Use. Follow up: Private Physician; When: 1 - 2 days; Reason: Recheck today's complaints, Continuance of care, Re-evaluation by your physician. Follow up: Drake Rai; When: 2 - 3 days; Reason: Recheck today's complaints, Continuance of care, Re-evaluation by your physician. snw
--- NOTE | 2019-02-02 08:43 | ER ---
Nurse's Notes [facility] Name: aSjan Meléndez Age: 43 yrs Sex: Male : 1975 Arrival Date: 02/02/2019 Time: 06:19 Bed 5 Private MD: Diagnosis: Diarrhea, unspecified;Lower abdominal pain, unspecified;Renal insufficiency;Hypokalemia Presentation: 02/02 06:26 Risk Assessment: Do you want to hurt yourself or someone else? Patient reports no cc3 desire to harm self or others. Initial Sepsis Screen: Does the patient meet any 2 criteria? No. Patient's initial sepsis screen is negative. Does the patient have a suspected source of infection? No. Patient's initial sepsis screen is negative. Care prior to arrival: None. 06:28 Presenting complaint: Patient states: LLQ abdominal pain radiating across lower abdomen lp1 x 2 weeks with intermittent constipation and diarrhea; Last BM states to be on Friday; "I'm just passing a lot of gas"; Complaint of nausea. Transition of care: patient was not received from another setting of care. Onset of symptoms was February 02, 2019. Risk Assessment: Do you want to hurt yourself or someone else? Patient reports no desire to harm self or others. Initial Sepsis Screen: Does the patient meet any 2 criteria? No. Patient's initial sepsis screen is negative. Does the patient have a suspected source of infection? No. Patient's initial sepsis screen is negative. Care prior to arrival: None. 06:28 Method Of Arrival: Ambulatory lp1 06:28 Acuity: DELMI 3 lp1 Historical: - Allergies: 06:31 Poultry; lp1 - Home Meds: 06:31 Klonopin 1 mg Oral tab 1 tab 2 times per day [Active]; Primidone Oral [Active]; lp1 propranolol 120 mg Oral Cs24 1 cap once daily [Active]; Topamax 100 mg Oral tab 1 tab 2 times per day [Active]; - PMHx: 06:31 Anxiety; ESSENTIAL TREMORS; PTSD; ulcerative colitis; lp1 - PSHx: 06:31 Appendectomy; Knee surgery; lp1 - Immunization history:: Adult Immunizations up to date. - Social history:: Smoking status: Patient uses tobacco products, denies chronic smoking, but will smoke occasionally. - Ebola Screening: : No symptoms or risks identified at this time No symptoms or risks identified at this time. Screenin:26 Abuse screen: Denies threats or abuse. Denies injuries from another. Nutritional cc3 screening: No deficits noted. Tuberculosis screening: No symptoms or risk factors identified. Fall Risk Ambulatory Aid- None/Bed Rest/Nurse Assist (0 pts). Gait- Normal/Bed Rest/Wheelchair (0 pts) Mental Status- Oriented to own ability (0 pts). Assessment: 06:34 General: Appears uncomfortable, Behavior is appropriate for age. Pain: Complains of lp1 pain in left lower quadrant Pain radiates to right lower quadrant and left lower quadrant Pain currently is 8 out of 10 on a pain scale. Quality of pain is described as sharp, stabbing. Neuro: Level of Consciousness is awake, alert, obeys commands, Oriented to person, place, time, situation. Cardiovascular: Patient's skin is warm and dry. Respiratory: Respiratory effort is even, unlabored. GI: Abdomen is non-distended, Bowel sounds present X 4 quads. Abdomen is tender to palpation in left lower quadrant Reports bloating, constipation, diarrhea, nausea. : Denies burning with urination. EENT: No signs and/or symptoms were reported regarding the EENT system. Derm: Skin is intact, Skin is dry, Skin is normal. Musculoskeletal: Circulation, motion, and sensation intact. 06:55 Reassessment: Patient appears in no apparent distress at this time. Patient and/or cc3 family updated on plan of care and expected duration. Pain level reassessed. Patient is alert, oriented x 3, equal unlabored respirations, skin warm/dry/pink. Patient finished his oral contrast, hearing aid repair technician is aware. Patient still for second set of blood culture. 08:16 Reassessment: Patient appears in no apparent distress at this time. Patient and/or ph family updated on plan of care and expected duration. Pain level reassessed. Patient is alert, oriented x 3, equal unlabored respirations, skin warm/dry/pink. Pt taken for CT via wheelchair. Vital Signs: 06:26 BP 152 / 91; Pulse 84; Resp 20 S; Temp 98.8(O); Pulse Ox 100% on R/A; Weight 92.53 kg cc3 (R); Height 5 ft. 7 in. (170.18 cm) (R); 08:00 BP 130 / 84; Pulse 70; Resp 18; Pulse Ox 99% on R/A; ph 08:45 BP 131 / 87; Pulse 73; Resp 18; Temp 97.8; Pulse Ox 98% on R/A; ph 06:26 Body Mass Index 31.95 (92.53 kg, 170.18 cm) cc3 ED Course: 06:19 Patient arrived in ED. ds1 06:23 Kori Mercado FNP-C is [facility]. snw 06:23 Tyler Rvias MD is Attending Physician. snw 06:26 Arm band placed on right wrist. Patient notified of wait time. cc3 06:26 Patient has correct armband on for positive identification. Bed in low position. Call cc3 light in reach. Side rails up X 1. Pulse ox on. NIBP on. 06:29 Triage completed. lp1 06:50 Inserted saline lock: 20 gauge in right antecubital area, using aseptic technique. cc3 Blood collected. 07:00 Report given to ALEXANDREA Barth and ALEXANDREA Paulino. cc3 07:38 Lora Xiong, RN is Primary Nurse. ph 08:[address] via wheelchair. jg6 08:30 CT Abd/Pelvis - W/Contrast In Process Unspecified. EDMS 08:40 Drake Rai MD is Referral Physician. snw 09:38 No provider procedures requiring assistance completed. IV discontinued, intact, ph bleeding controlled, No redness/swelling at site. Pressure dressing applied. Administered Medications: 07:00 Drug: fentaNYL (PF) 25 mcg Route: IVP; Site: right antecubital; cc3 07:30 Follow up: Response: No adverse reaction; Pain is decreased ph 07:05 Drug: NS 0.9% 1000 ml Route: IV; Rate: 125 ml/hr; Site: right antecubital; cc3 09:03 Follow up: IV Status: Completed infusion ph 08:10 Drug: NS 0.9% 1000 ml Route: IV; Rate: 1 bolus; Site: right antecubital; ph 09:05 Follow up: Response: No adverse reaction; IV Status: Completed infusion ph 09:01 Drug: TORadol 30 mg Route: IVP; Site: right antecubital; ph 09:05 Follow up: Response: No adverse reaction ph 09:01 CANCELLED (Duplicate Order): TORadol 30 mg IVP once ph 09:03 Drug: K-Lyte Effervescent Tablet 50 mEq Route: PO; ph 09:05 Follow up: Response: No adverse reaction ph Outcome: 08:42 Discharge ordered by . snw 09:38 Discharged to home ambulatory, with significant other. ph 09:38 Condition: good 09:38 Discharge instructions given to patient, Instructed on discharge instructions, follow up and referral plans. medication usage, Demonstrated understanding of instructions, follow-up care, medications, Prescriptions given X 1. 09:38 Patient left the ED. ph Signatures: Dispatcher [employer] EDMS Kori Mercado, KYE-C CRYSTAL GAZER-Janelle Schuster ds1 Nancy Noe, RN RN lp1 Lora Xiong RN RN Mary, Bhargavi cc3 Karoline Craigg6 Corrections: (The following items were deleted from the chart) 07:14 06:55 Reassessment: Patient appears in no apparent distress at this time. Patient cc3 and/or family updated on plan of care and expected duration. Pain level reassessed. Patient is alert, oriented x 3, equal unlabored respirations, skin warm/dry/pink. Patient finished his oral contrast, hearing aid repair technician is aware. cc3
[2019-02-02] MEDS ORDERED: POTASSIUM 25 MEQ EFFERV TAB ONE (09:07)
[2019-02-02] MEDS ORDERED: KETOROLAC 30 MG/ML INJ ONE (09:07)
[2019-02-02 09:46] VITALS: BP 131/87; TEMP 97.8; O2SAT 98
== END 2019-02-02 09:38 | disposition home or self-care (01) ==
LOC: ER 06:18
DX: R19.7 Diarrhea, unspecified (principal); E87.6 Hypokalemia; N28.9 Disorder of kidney and ureter, unspecified; F41.9 Anxiety disorder, unspecified; F43.10 Post-traumatic stress disorder, unspecified; Z72.0 Tobacco use
CPT/HCPCS: 36415; 74177; 80048; 80076; 83690; 85025; 87040; 96361; 96374; 96375; 99284; J3010; J7030; Q9967

== ENCOUNTER 2019-10-27 06:31 | Emergency (ER) | payer SELFPAY ==
[2019-10-27] MEDS ORDERED: predniSONE 20 MG TAB ONE (06:44)
[2019-10-27] MEDS ORDERED: ALBUTEROL 2.5 MG/3 ML NEB SOL ONE ×2 (06:44→08:02)
[2019-10-27] MEDS ORDERED: IPRATROPIUM BROM 0.5MG/2.5ML ONE (06:44)
--- NOTE | 2019-10-27 07:59 | EDPHYS ---
Physician Documentation [facility] Name: Sajan Meléndez Age: 44 yrs Sex: Male : 1975 Arrival Date: 10/27/2019 Time: 06:34 Bed 20 Private MD: ED Physician Atif Suero HPI: 10/27 06:58 This 44 yrs old Male presents to ER via Ambulatory with complaints of kb Shortness Of Breath, Dizziness. 06:58 The patient has shortness of breath at rest, that occurred at home, and the patient has kb a history of asthma. Onset: The symptoms/episode began/occurred this morning. Duration: The symptoms are continuous. The patient's shortness of breath is aggravated by nothing, is alleviated by nothing. Associated signs and symptoms: Pertinent positives: dizziness. Severity of symptoms: At their worst the symptoms were moderate in the emergency department the symptoms are unchanged. The patient has experienced similar episodes in the past, a few times. The patient has not recently seen a physician. Pt reports shortness of breath and dizziness upon waking. States he has had similar symptoms before but "not like this, it was more asthma symptoms." Has a rescue inhaler, but did not use it this morning. Also reports he hasn't felt good since Friday. Ambulates with steady gait. . Historical: - Allergies: 06:55 Poultry; ea - Home Meds: 06:55 Topamax 100 mg Oral tab 1 tab 2 times per day [Active]; Klonopin 1 mg Oral tab 1 tab 2 ea times per day [Active]; propranolol 120 mg Oral Cs24 1 cap once daily [Active]; - PMHx: 06:55 ulcerative colitis; PTSD; ESSENTIAL TREMORS; Anxiety; ea - PSHx: 06:55 Knee surgery; Appendectomy; ea - Immunization history:: Adult Immunizations up to date. - Social history:: Smoking status: Patient/guardian denies using tobacco. - Ebola Screening: : No symptoms or risks identified at this time. ROS: 06:58 Constitutional: Negative for fever, chills, and weight loss, ENT: Negative for injury, kb pain, and discharge, Neck: Negative for injury, pain, and swelling, Cardiovascular: Negative for chest pain, palpitations, and edema, Abdomen/GI: Negative for abdominal pain, nausea, vomiting, diarrhea, and constipation, Back: Negative for injury and pain, : Negative for injury, bleeding, discharge, and swelling, MS/Extremity: Negative for injury and deformity, Skin: Negative for injury, rash, and discoloration. 06:58 Respiratory: Positive for shortness of breath, wheezing. 06:58 Neuro: Positive for dizziness. Exam: 06:57 Constitutional: This is a well developed, well nourished patient who is awake, alert, kb and in no acute distress. Head/Face: Normocephalic, atraumatic. ENT: Nares patent. No nasal discharge, no septal abnormalities noted. Tympanic membranes are normal and external auditory canals are clear. Oropharynx with no redness, swelling, or masses, exudates, or evidence of obstruction, uvula midline. Mucous membranes moist. Neck: Trachea midline, no thyromegaly or masses palpated, and no cervical lymphadenopathy. Supple, full range of motion without nuchal rigidity, or vertebral point tenderness. No Meningismus. Chest/axilla: Normal chest wall appearance and motion. Nontender with no deformity. No lesions are appreciated. Cardiovascular: Regular rate and rhythm with a normal S1 and S2. No gallops, murmurs, or rubs. Normal PMI, no JVD. No pulse deficits. Abdomen/GI: Soft, non-tender, with normal bowel sounds. No distension or tympany. No guarding or rebound. No evidence of tenderness throughout. Back: No spinal tenderness. No costovertebral tenderness. Full range of motion. Skin: Warm, dry with normal turgor. Normal color with no rashes, no lesions, and no evidence of cellulitis. MS/ Extremity: Pulses equal, no cyanosis. Neurovascular intact. Full, normal range of motion. Neuro: Awake and alert, GCS 15, oriented to person, place, time, and situation. Cranial nerves II-XII grossly intact. Motor strength 5/5 in all extremities. Sensory grossly intact. Cerebellar exam normal. Normal gait. 06:57 Respiratory: the patient does not display signs of respiratory distress, Respirations: normal, Breath sounds: wheezing: expiratory that is moderate, is heard diffusely. Vital Signs: 06:40 BP 146 / 104; Pulse 124; Resp 22; Temp 97.7(O); Pulse Ox 100% ; Weight 95.25 kg; Height ea 5 ft. 7 in. (170.18 cm); 06:56 BP 151 / 97; Pulse 106; Resp 20; Pulse Ox 100% ; ea 07:21 Pulse 100; Resp 18; Pulse Ox 100% ; bp 07:53 BP 143 / 87; Pulse 100; Resp 20; Pulse Ox 98% ; bp 08:30 BP 132 / 96; Pulse 90; Resp 20; Temp 98; Pulse Ox 100% ; bp 06:40 Body Mass Index 32.89 (95.25 kg, 170.18 cm) ea MDM: 06:35 Patient medically screened. kb 06:57 Data reviewed: vital signs, nurses notes. Data interpreted: Pulse oximetry: on room air kb is 100 %. Interpretation: normal. 07:57 Counseling: I had a detailed discussion with the patient and/or guardian regarding: the kb historical points, exam findings, and any diagnostic results supporting the discharge/admit diagnosis, lab results, radiology results, the need for outpatient follow up, a family practitioner, to return to the emergency department if symptoms worsen or persist or if there are any questions or concerns that arise at home. Response to treatment: the patient's symptoms have markedly improved after treatment. 10/27 06:39 Order name: Flu; Complete Time: 07:12 kb 10/27 06:39 Order name: Chest Pa And Lat (2 Views) XRAY; Complete Time: 08:16 kb Administered Medications: 06:49 Drug: DuoNeb (3:1) (2.5 mg - 0.5 mg) 3 ml Route: Nebulizer; ea 07:03 Follow up: Response: Marked relief of symptoms bp 06:49 Drug: predniSONE 40 mg Route: PO; ea 07:02 Follow up: Response: No adverse reaction bp 08:00 Drug: Albuterol 2.5 mg Route: Inhalation; bp Disposition: 10/28 06:23 Co-signature as Attending Physician, Atif Suero MD I agree with the assessment and tw4 plan of care. Disposition: 10/27/19 07:58 Discharged to Home. Impression: Unspecified asthma with (acute) exacerbation. - Condition is Stable. - Discharge Instructions: Asthma, Adult, [id number]. - Prescriptions for Prednisone 20 mg Oral Tablet - take 1 tablet by ORAL route once daily for 5 days; 5 tablet. Albuterol Sulfate 90 mcg/actuation - inhale 1-2 puff by INHALATION route every 4-6 hours; 1 Inhaler. - Medication Reconciliation Form, Thank You Letter, Antibiotic Education, Prescription Opioid Use, Work release form form. - Follow up: Emergency Department; When: As needed; Reason: Worsening of condition. Follow up: Private Physician; When: 2 - 3 days; Reason: Recheck today's complaints, Continuance of care, Re-evaluation by your physician. Signatures: Dispatcher [employer] EDClaudette Leiva, KYE-C KYE-Patricia El, RN RN Pillo Higginbotham, RN RN Atif Matthews MD MD tw4 Corrections: (The following items were deleted from the chart) 10/27 08:32 07:58 10/27/2019 07:58 Discharged to Home. Impression: Unspecified asthma with (acute) bp exacerbation. Condition is Stable. Forms are Medication Reconciliation Form, Thank You Letter, Antibiotic Education, Prescription Opioid Use. Follow up: Emergency Department; When: As needed; Reason: Worsening of condition. Follow up: Private Physician; When: 2 - 3 days; Reason: Recheck today's complaints, Continuance of care, Re-evaluation by your physician. kb
--- NOTE | 2019-10-27 07:59 | ER ---
Nurse's Notes [facility] Name: Sajan Meléndez Age: 44 yrs Sex: Male : 1975 Arrival Date: 10/27/2019 Time: 06:34 Bed 20 Private MD: Diagnosis: Unspecified asthma with (acute) exacerbation Presentation: 10/27 06:40 Presenting complaint: Patient states: Reports he has been feeling under the weather, ea states "I woke up this morning feeling short of breath and dizzy". Transition of care: patient was not received from another setting of care. Onset of symptoms was October 27, 2019. Risk Assessment: Do you want to hurt yourself or someone else? Patient reports no desire to harm self or others. Initial Sepsis Screen: Does the patient meet any 2 criteria? RR > 20 per min. HR > 90 bpm. Yes Does the patient have a suspected source of infection? No. Patient's initial sepsis screen is negative. Care prior to arrival: None. 06:40 Method Of Arrival: Ambulatory ea 06:40 Acuity: DELMI 3 ea Triage Assessment: 06:40 General: Appears uncomfortable, Behavior is appropriate for age. Respiratory: Onset: ea The symptoms/episode began/occurred this morning, the patient has mild shortness of breath. Respiratory: Airway is patent Respiratory effort is labored, Respiratory pattern is tachypnea. Historical: - Allergies: 06:55 Poultry; ea - Home Meds: 06:55 Topamax 100 mg Oral tab 1 tab 2 times per day [Active]; Klonopin 1 mg Oral tab 1 tab 2 ea times per day [Active]; propranolol 120 mg Oral Cs24 1 cap once daily [Active]; - PMHx: 06:55 ulcerative colitis; PTSD; ESSENTIAL TREMORS; Anxiety; ea - PSHx: 06:55 Knee surgery; Appendectomy; ea - Immunization history:: Adult Immunizations up to date. - Social history:: Smoking status: Patient/guardian denies using tobacco. - Ebola Screening: : No symptoms or risks identified at this time. Screenin:49 Abuse screen: Denies threats or abuse. Nutritional screening: No deficits noted. ea Tuberculosis screening: No symptoms or risk factors identified. Fall Risk None identified. Assessment: 06:40 General: Appears uncomfortable, Behavior is appropriate for age. Pain: Denies pain. ea Neuro: Level of Consciousness is awake, alert, obeys commands, Oriented to person, place, time, situation. Neuro: Reports dizziness. Cardiovascular: Patient's skin is warm and dry. Respiratory: Airway is patent Respiratory effort is even, labored, Respiratory pattern is tachypnea. Respiratory: Breath sounds are coarse Breath sounds with wheezes bilaterally. GI: No signs and/or symptoms were reported involving the gastrointestinal system. Derm: Skin is pink, warm \\T\\ dry. Musculoskeletal: Circulation, motion, and sensation intact. 07:00 Reassessment: RECD REPORT FROM PATRICIA LECHUGA. 44YO WM P/W SOB, H/O ASTHMA. NEB IN PROCESS. bp Cardiovascular: Rhythm is sinus rhythm. 08:00 Reassessment: D/C ON HOLD FOR NEB COMPLETION. bp 08:31 Reassessment: PT D/C HOME AMBULATORY, DX WITH ASTHMA EXACERBATION. bp Vital Signs: 06:40 BP 146 / 104; Pulse 124; Resp 22; Temp 97.7(O); Pulse Ox 100% ; Weight 95.25 kg; Height ea 5 ft. 7 in. (170.18 cm); 06:56 BP 151 / 97; Pulse 106; Resp 20; Pulse Ox 100% ; ea 07:21 Pulse 100; Resp 18; Pulse Ox 100% ; bp 07:53 BP 143 / 87; Pulse 100; Resp 20; Pulse Ox 98% ; bp 08:30 BP 132 / 96; Pulse 90; Resp 20; Temp 98; Pulse Ox 100% ; bp 06:40 Body Mass Index 32.89 (95.25 kg, 170.18 cm) ea ED Course: 06:34 Patient arrived in ED. jg7 06:35 Claudette Huang FNP-C is PHCP. kb 06:35 Atif Suero MD is Attending Physician. kb 06:40 Arm band placed on right wrist. Patient placed in an exam room, on a stretcher, on ea pulse oximetry. 06:52 Patient has correct armband on for positive identification. Bed in low position. Call ea light in reach. Side rails up X 1. 06:53 Triage completed. ea 07:00 Pillo Burrows, ALEXANDREA is Primary Nurse. bp 07:12 Chest Pa And Lat (2 Views) XRAY In Process Unspecified. EDMS 08:03 No provider procedures requiring assistance completed. Patient did not have IV access bp during this emergency room visit. Administered Medications: 06:49 Drug: DuoNeb (3:1) (2.5 mg - 0.5 mg) 3 ml Route: Nebulizer; ea 07:03 Follow up: Response: Marked relief of symptoms bp 06:49 Drug: predniSONE 40 mg Route: PO; ea 07:02 Follow up: Response: No adverse reaction bp 08:00 Drug: Albuterol 2.5 mg Route: Inhalation; bp Outcome: 07:58 Discharge ordered by . renetta 08:31 Discharged to home ambulatory. bp 08:31 Condition: stable 08:31 Discharge instructions given to patient, Instructed on discharge instructions, follow up and referral plans. medication usage, Demonstrated understanding of instructions, follow-up care, medications, Prescriptions given X 2. 08:32 Patient left the ED. bp Signatures: Dispatcher [employer] EDMS Claudette Huang, Patricia Arnold RN RN ea Peltier, Brian RN RN Karoline Olivarez jg7
--- NOTE | 2019-10-27 08:14 | RAD REPORT ---
EXAM DESCRIPTION: RAD - Chest Pa And Lat (2 Views) - 10/27/2019 7:16 am CLINICAL HISTORY: DYSPNEA Chest pain. COMPARISON: Chest Single View dated 02/10/2018; Chest Pa And Lat (2 Views) dated 12/19/2017; Chest Singl e View dated 10/04/2017; Chest Single View dated 06/02/2017 FINDINGS: The lungs are clear. The heart is normal in size. No displaced fractures. IMPRESSION: No acute or concerning finding suspected.
[2019-10-27 08:42] VITALS: BP 132/96; TEMP 98; O2SAT 100
== END 2019-10-27 08:32 | disposition home or self-care (01) ==
LOC: ER 06:31
DX: J45.901 Unspecified asthma with (acute) exacerbation (principal); F41.9 Anxiety disorder, unspecified; F43.10 Post-traumatic stress disorder, unspecified
CPT/HCPCS: 71046; 87804; 94640; 99285; J7512

== ENCOUNTER 2021-11-26 18:12 | Emergency (ER) | payer BC, SELFPAY ==
[2021-11-26] MEDS ORDERED: predniSONE 20 MG TAB ONE (19:13)
[2021-11-26] MEDS ORDERED: IPRATROPIUM BROM 0.5MG/2.5ML ONE (19:16)
--- NOTE | 2021-11-26 19:38 | RAD REPORT ---
EXAM DESCRIPTION: RAD - Chest Pa And Lat (2 Views) - 11/26/2021 7:16 pm CLINICAL HISTORY: COUGH COMPARISON: Two view chest October 2019, portable chest February 2018 TECHNIQUE: Frontal and lateral views of the chest were obtained. FINDINGS: The lungs are clear. Interstitial pattern matches comparison. Hilar regions are similar t o the 2 comparison studies. Heart size is normal and central vasculature is within normal limits. No pleural effusion or pneumothorax seen. No acute bony finding noted. No aortic abnormality. IMPRESSION: No acute cardiopulmonary process. No significant change from comparison study.
[2021-11-26 20:43] LABS: SARS-COV-2 RT PCR NEGATIVE (NEGATIVE)
--- NOTE | 2021-11-26 20:46 | ER ---
Nurse's Notes [facility] Name: Sajan Meléndez Age: 46 yrs Sex: Male : 1975 Arrival Date: 11/26/2021 Time: 18:17 Bed 27 Private MD: Diagnosis: Acute bronchitis, unspecified Presentation: 11/26 18:59 Chief complaint: Patient states: cough and congestion x 2 weeks; body aches, difficulty vg1 breathing, fatigue and fever x 4 days. Took Dayquil 2 tabs at 1500. Coronavirus screen: Vaccine status: Patient reports being unvaccinated. Client denies travel out of the [place] in the last 14 days. Client presents with at least one sign or symptom that may indicate coronavirus-19. Standard/surgical mask placed on the client. Ebola Screen: Patient negative for fever greater than or equal to 101.5 degrees Fahrenheit, and additional compatible Ebola Virus Disease symptoms. Initial Sepsis Screen: Does the patient meet any 2 criteria? No. Patient's initial sepsis screen is negative. Does the patient have a suspected source of infection? No. Patient's initial sepsis screen is negative. Risk Assessment: Do you want to hurt yourself or someone else? Patient reports no desire to harm self or others. Onset of symptoms was November 22, 2021. 18:59 Method Of Arrival: Ambulatory vg1 18:59 Acuity: DELMI 4 vg1 Triage Assessment: 19:01 General: Appears in no apparent distress. uncomfortable, Behavior is calm, cooperative. vg1 Pain: Complains of pain in generalized body. Respiratory: Reports cough that is productive, Onset: The symptoms/episode began/occurred 11/22/21, the patient has mild shortness of breath. Historical: - Allergies: 19:01 Poultry; vg1 - Home Meds: 19:01 Klonopin 1 mg Oral tab 1 tab 2 times per day [Active]; propranolol 120 mg Oral Cs24 1 vg1 cap once daily [Active]; Topamax 100 mg Oral tab 1 tab 2 times per day [Active]; - PMHx: 19:01 Anxiety; ESSENTIAL TREMORS; PTSD; ulcerative colitis; vg1 - PSHx: 19:01 None; vg1 - Immunization history:: Client reports having NOT received the Covid vaccine. - Social history:: Smoking status: Patient reports the use of cigarette tobacco products, smokes one pack cigarettes per day. Screenin:42 Abuse screen: Denies threats or abuse. Denies injuries from another. Nutritional kd3 screening: No deficits noted. Tuberculosis screening: No symptoms or risk factors identified. Fall Risk None identified. Assessment: 20:47 Cardiovascular: Rhythm is regular. Respiratory: Airway is patent Respiratory effort is kd3 even, unlabored, Breath sounds are clear. Vital Signs: 18:59 BP 128 / 94; Pulse 82; Resp 18; Temp 98.6(O); Pulse Ox 98% ; Weight 95.25 kg; Height 5 vg1 ft. 7 in. (170.18 cm); Pain 6/10; 20:47 BP 125 / 86; Pulse 75; Resp 16; Temp 98.5; Pulse Ox 98% on R/A; kd3 18:59 Body Mass Index 32.89 (95.25 kg, 170.18 cm) vg1 ED Course: 18:17 Patient arrived in ED. ja2 19:01 Triage completed. vg1 19:01 Arm band placed on. vg1 19:05 COVID swab sent to lab. Flu and/or RSV swab sent to lab. Strep swab sent to lab. vg1 19:07 Claud[facility] Huang [facility]-C [facility] kb 19:07 Vernon Sanchez MD is Attending Physician. kb 19:09 Karoline Bhatti, ALEXANDREA is Primary Nurse. jh5 19:15 Chest Pa And Lat (2 Views) XRAY In Process Unspecified. EDMS 20:42 Patient has correct armband on for positive identification. kd3 20:47 No provider procedures requiring assistance completed. Patient did not have IV access kd3 during this emergency room visit. Administered Medications: 19:21 Drug: DuoNeb (albuterol 2.5 mg, ipratropium 0.5 mg) (3:1) (2.5 mg - 0.5 mg) 3 ml Route: jh5 Nebulizer; 19:21 Drug: predniSONE 40 mg Route: PO; 5 Outcome: 20:46 Discharge ordered by . kb 21:06 Discharged to home ambulatory. kd3 21:06 Condition: stable 21:06 Discharge instructions given to patient, family, Instructed on discharge instructions, follow up and referral plans. medication usage, Demonstrated understanding of instructions, follow-up care, medications. 21:06 Patient left the ED. kd3 Signatures: Dispatcher [employer] EDClaudette Leiva, TACO FISHMAN-Kika Norman RN RN vg1 Karoline Dyer Jessica, RN RN jh5 Rhonda Dotson RN RN kd3
--- NOTE | 2021-11-26 20:47 | EDPHYS ---
Physician Documentation [facility] Name: Sajan Meléndez Age: 46 yrs Sex: Male : 1975 Arrival Date: 11/26/2021 Time: 18:17 Bed 27 Private MD: ED Physician Vernon Sanchez HPI: 11/26 20:16 This 46 yrs old Male presents to ER via Ambulatory with complaints of Breathing kb Difficulty, Cough, Congestion, General Weakness, Fever. 20:16 The patient or guardian reports cough, that is intermittent, described as mild, kb difficulty breathing, flu symptoms, low-grade fever, myalgias. Onset: The symptoms/episode began/occurred 4 day(s) ago. Severity of symptoms: At their worst the symptoms were moderate, in the emergency department the symptoms are unchanged. Modifying factors: The symptoms are alleviated by nothing, the symptoms are aggravated by nothing. Associated signs and symptoms: Pertinent positives: fever, sore throat, Pertinent negatives: chest pain, diarrhea, ear ache, nausea, rhinorrhea, vomiting. The patient has not experienced similar symptoms in the past. The patient has not recently seen a physician. Pt reports cough, congestion, bodyaches, fever, fatigue, and shortness of breath that started 4 days ago. . Historical: - Allergies: 19:01 Poultry; vg1 - Home Meds: 19:01 Klonopin 1 mg Oral tab 1 tab 2 times per day [Active]; propranolol 120 mg Oral Cs24 1 vg1 cap once daily [Active]; Topamax 100 mg Oral tab 1 tab 2 times per day [Active]; - PMHx: 19:01 Anxiety; ESSENTIAL TREMORS; PTSD; ulcerative colitis; vg1 - PSHx: 19:01 None; vg1 - Immunization history:: Client reports having NOT received the Covid vaccine. - Social history:: Smoking status: Patient reports the use of cigarette tobacco products, smokes one pack cigarettes per day. ROS: 20:16 Abdomen/GI: Negative for abdominal pain, nausea, vomiting, diarrhea, and constipation. kb 20:16 Constitutional: Positive for body aches, chills, fatigue, fever, malaise. 20:16 ENT: Positive for sinus congestion, sore throat. 20:16 Respiratory: Positive for cough, shortness of breath. 20:16 Neuro: Positive for headache. 20:16 All other systems are negative. Exam: 20:17 Constitutional: This is a well developed, well nourished patient who is awake, alert, kb and in no acute distress. Head/Face: Normocephalic, atraumatic. ENT: Moist Mucous membranes Cardiovascular: Regular rate and rhythm with a normal S1 and S2. No gallops, murmurs, or rubs. No pulse deficits. Skin: Warm, dry with normal turgor. Normal color. MS/ Extremity: Pulses equal, no cyanosis. Neurovascular intact. Full, normal range of motion. Neuro: Awake and alert, GCS 15, oriented to person, place, time, and situation. Moves all extremities. Normal gait. Psych: Awake, alert, with orientation to person, place and time. Behavior, mood, and affect are within normal limits. 20:17 Respiratory: the patient does not display signs of respiratory distress, Respirations: normal, Breath sounds: wheezing: expiratory that is moderate, is scattered. Vital Signs: 18:59 BP 128 / 94; Pulse 82; Resp 18; Temp 98.6(O); Pulse Ox 98% ; Weight 95.25 kg; Height 5 vg1 ft. 7 in. (170.18 cm); Pain 6/10; 20:47 BP 125 / 86; Pulse 75; Resp 16; Temp 98.5; Pulse Ox 98% on R/A; kd3 18:59 Body Mass Index 32.89 (95.25 kg, 170.18 cm) vg1 MDM: 19:07 Patient medically screened. kb 19:50 Data reviewed: vital signs, nurses notes. Data interpreted: Pulse oximetry: on room air kb is 98 %. Interpretation: normal. 20:45 Counseling: I had a detailed discussion with the patient and/or guardian regarding: the kb historical points, exam findings, and any diagnostic results supporting the discharge/admit diagnosis, lab results, radiology results, the need for outpatient follow up, a family practitioner, to return to the emergency department if symptoms worsen or persist or if there are any questions or concerns that arise at home. ED course: Will treat Bronchitis with antibiotics due to history of asthma and current smoking status. 11/26 19:03 Order name: COVID-19/FLU A+B (Document "Date of Onset" if Symptomatic); Complete Time: kb 20:45 11/26 19:04 Order name: Strep; Complete Time: 19:36 [facility] 11/26 19:04 Order name: Chest Pa And Lat (2 Views) XRAY; Complete Time: 19:43 1 11/26 19:36 Order name: Throat Culture EDMS Administered Medications: 19:21 Drug: DuoNeb (albuterol 2.5 mg, ipratropium 0.5 mg) (3:1) (2.5 mg - 0.5 mg) 3 ml Route: jh5 Nebulizer; 19:21 Drug: predniSONE 40 mg Route: PO; 5 Disposition: 23:45 Co-signature as Attending Physician, Vernon Sanchez MD. pk Disposition Summary: 11/26/21 20:46 Discharge Ordered Location: Home kb Condition: Stable kb Diagnosis - Acute bronchitis, unspecified kb Followup: kb - With: Emergency Department - When: As needed - Reason: Worsening of condition Followup: kb - With: Private Physician - When: 2 - 3 days - Reason: Recheck today's complaints, Continuance of care, Re-evaluation by your physician Discharge Instructions: - Discharge Summary Sheet kb - Acute Bronchitis, Adult, [id number] kb Forms: - Medication Reconciliation Form kb - Thank You Letter kb - Antibiotic Education kb - Prescription Opioid Use kb - Work release form kd3 Prescriptions: - albuterol sulfate 90 mcg/actuation Inhalation HFA aerosol inhaler - inhale 2 puff by INHALATION route every 4-6 hours As needed; 1 Inhaler; kb Refills: 0, Product Selection Permitted - Prednisone 20 mg Oral Tablet - take 1 tablet by ORAL route once daily for 5 days; 5 tablet; Refills: 0, kb Product Selection Permitted - Zithromax 500 mg Oral Tablet - take 1 tablet by ORAL route once daily for 5 days; 5 tablet; Refills: 0, kb Product Selection Permitted Signatures: Dispatcher [employer] EDMS Claudette Huang, TACO FISHMAN-Vernon Sheridan MD MD pkl Kika Craig RN RN vg1 Karoline Bhatti RN RN jh5 Corrections: (The following items were deleted from the chart) 19:22 19:04 COVID-19/FLU A+B+MOL.LAB.BRZ ordered. EDMS EDMS 20:16 19:50 Constitutional: Negative for fever, chills, and weight loss, kb kb 20:17 20:16 ENT: Positive for sinus congestion, kb kb
[2021-11-26] MEDS ORDERED: ACETAMINOPHEN 325 MG TABLET ONE (21:01)
[2021-11-26 21:51] VITALS: O2SAT 98
[2021-11-26 21:53] VITALS: BP 125/86; TEMP 98.5
== END 2021-11-26 21:06 | disposition home or self-care (01) ==
LOC: ER 18:12
DX: J20.9 Acute bronchitis, unspecified (principal); Z20.822 Contact with and (suspected) exposure to COVID-19; F43.10 Post-traumatic stress disorder, unspecified; F17.210 Nicotine dependence, cigarettes, uncomplicated; Z91.018 Allergy to other foods
CPT/HCPCS: 87070; 87081; 0240U; 71046; 94640; 99284; J7512

== ENCOUNTER 2021-12-25 06:36 | Emergency (ER) | payer BC ==
[2021-12-25] MEDS ORDERED: METHYLPREDNISOLONE 125 MG INJ ONE (07:32)
[2021-12-25] MEDS ORDERED: LEVALBUTEROL 0.63 MG/3 ML NEB ONE (07:32)
[2021-12-25] MEDS ORDERED: NA CHLORIDE 0.9% 1,000 ML ONE (07:32)
[2021-12-25 08:30] LABS: SARS-COV-2 RT PCR NEGATIVE (NEGATIVE)
--- NOTE | 2021-12-25 09:00 | RAD REPORT ---
EXAM DESCRIPTION: RAD - Chest Single View - 12/25/2021 8:09 am CLINICAL HISTORY: Cough;Dyspnea COMPARISON: Two view chest 11/26/2021 TECHNIQUE: AP portable chest image was obtained 12/25/2021 8:09 am . FINDINGS: No peripheral mass or consolidation. Interstitial pattern is prominent but not clearly dif ferent. Heart and vasculature are normal. No measurable pleural effusion and no pneumothorax. No acut e bony abnormality seen. No acute aortic findings suspected. IMPRESSION: No acute cardiopulmonary process. No significant change from comparison study.
--- NOTE | 2021-12-25 09:13 | ER ---
Nurse's Notes [facility] Name: Sajan Meléndez Age: 46 yrs Sex: Male : 1975 Arrival Date: 12/25/2021 Time: 06:39 Bed 27 Private MD: Diagnosis: Acute bronchitis, unspecified;Acute laryngopharyngitis Presentation: 12/25 06:54 Chief complaint: Patient states: the patient states he is having difficulty breathing st1 with a productive cough with yellow sputum, mid back pain and headache since Friday afternoon. Coronavirus screen: Vaccine status: Patient reports being unvaccinated. Client denies travel out of the [place] in the last 14 days. Ebola Screen: No symptoms or risks identified at this time. Initial Sepsis Screen: Does the patient meet any 2 criteria? No. Patient's initial sepsis screen is negative. Does the patient have a suspected source of infection? No. Patient's initial sepsis screen is negative. Risk Assessment: Do you want to hurt yourself or someone else? Patient reports no desire to harm self or others. Onset of symptoms was December 22, 2021. 06:54 Method Of Arrival: Ambulatory st1 06:54 Acuity: DELMI 3 st1 Triage Assessment: 06:57 General: Appears in no apparent distress. uncomfortable, obese, well groomed, Behavior st1 is calm, cooperative. Pain:. Respiratory: Reports shortness of breath labored breathing pain with cough pain with respiration Onset: The symptoms/episode began/occurred Satur , the patient has moderate shortness of breath. Historical: - Allergies: 06:57 Poultry; st1 - Home Meds: 07:52 Klonopin 1 mg Oral tab 1 tab 2 times per day [Active]; Primidone Oral [Active]; eo2 propranolol 120 mg Oral Cs24 1 cap once daily [Active]; Topamax 100 mg Oral tab 1 tab 2 times per day [Active]; - PMHx: 06:57 Anxiety; ESSENTIAL TREMORS; PTSD; ulcerative colitis; st1 - Immunization history:: Flu vaccine is not up to date. - Social history:: Smoking status: Patient/guardian denies using tobacco, Stopped _ months ago 1 Patient/guardian denies using alcohol, street drugs, IV drugs. - Family history:: not pertinent. - Hospitalizations: : No recent hospitalization is reported. Screenin:00 Abuse screen: Denies threats or abuse. Denies injuries from another. Nutritional bp screening: No deficits noted. Tuberculosis screening: No symptoms or risk factors identified. Fall Risk None identified. Assessment: 06:59 General: SEE TRIAGE NOTE. bp 07:49 Pain: Complains of pain in back. Neuro: Level of Consciousness is awake, alert, obeys eo2 commands, Oriented to person, place, time, situation, Reports headache. Cardiovascular: Heart tones S1 S2 Capillary refill < 3 seconds Rhythm is regular. Respiratory: Reports shortness of breath cough that is Airway is patent Respiratory effort is even, unlabored, Respiratory pattern is regular, symmetrical, Breath sounds with wheezes bilaterally. GI: Abdomen is non-distended, Bowel sounds present X 4 quads. Reports diarrhea. Musculoskeletal: Reports pain in back. Vital Signs: 06:54 BP 132 / 93; Pulse 98; Resp 16; Temp 98.6; Pulse Ox 97% ; Weight 84.82 kg; Height 5 ft. st1 7 in. (170.18 cm); Pain 8/10; 07:32 BP 114 / 79; Pulse 91; Resp 21; Pulse Ox 94% on R/A; Pain 8/10; eo2 08:49 BP 114 / 70; Pulse 78; Resp 19; Pulse Ox 96% ; eo2 09:22 BP 121 / 86; Pulse 73; Resp 17; Pulse Ox 95% ; Pain 6/10; eo2 06:54 Body Mass Index 29.29 (84.82 kg, 170.18 cm) st1 ED Course: 06:39 Patient arrived in ED. ja2 06:57 Triage completed. st1 06:57 Arm band placed on right wrist. st1 06:59 Pillo Burrows, RN is Primary Nurse. bp 06:59 Tyler Rivas MD is Attending Physician. rn 07:00 Patient has correct armband on for positive identification. Bed in low position. Call bp light in reach. Side rails up X2. 07:26 COVID-19/FLU A+B (Document "Date of Onset" if Symptomatic) Sent. eo2 07:32 Pulse ox on. NIBP on. Door closed. Noise minimized. eo2 07:32 No provider procedures requiring assistance completed. eo2 07:42 Inserted saline lock: 22 gauge in right antecubital area, using aseptic technique. eo2 08:09 XRAY Chest (1 view) In Process Unspecified. EDMS 08:49 Primary Nurse role handed off by Pillo Burrows RN eo2 08:49 Shawnee Shannon RN is Primary Nurse. eo2 09:22 IV discontinued, intact. eo2 Administered Medications: 07:42 Drug: NS 0.9% 1000 ml Route: IV; Rate: 1000 ml; Site: right antecubital; eo2 08:48 Follow up: Response: No adverse reaction; IV Status: Completed infusion; IV Intake: eo2 1000ml 07:45 Drug: Xopenex (levalbuterol) 1.25 mg Route: Inhalation; eo2 08:45 Follow up: Response: No adverse reaction; Wheezing diminished eo2 07:45 Drug: SOLU-Medrol (methylPrednisoLONE) 125 mg Route: IVP; Site: right antecubital; eo2 08:48 Follow up: Response: No adverse reaction; Wheezing diminished eo2 Intake: 08:48 IV: 1000ml; Total: 1000ml. eo2 Outcome: 09:12 Discharge ordered by . rn 09:22 Discharged to home ambulatory. eo2 09:22 Condition: stable 09:22 Discharge instructions given to patient, Instructed on discharge instructions, follow up and referral plans. medication usage, Demonstrated understanding of instructions, follow-up care, medications, Prescriptions given X 2. 09:23 Patient left the ED. eo2 Signatures: Dispatcher [employer] EDGA Tyler Rivas MD MD rn Peltier, Brian, RN RN Karoline Dyer [facility] Shawnee Shannon RN RN eo2 Lorrie Coppola RN RN st1
--- NOTE | 2021-12-25 09:13 | EDPHYS ---
Physician Documentation [facility] Name: Sajan Meléndez Age: 46 yrs Sex: Male : 1975 Arrival Date: 12/25/2021 Time: 06:39 Bed 27 Private MD: ED Physician Tyler Rivas HPI: 12/25 07:18 This 46 yrs old Male presents to ER via Ambulatory with complaints of cough, Breathing rn Difficulty, Back Pain, Headache. 07:18 The patient has shortness of breath with light activity. rn 07:18 The patient or guardian reports cough, described as moderate, with productive sputum, rn difficulty breathing, flu symptoms, low-grade fever, myalgias, no appetite. Onset: The symptoms/episode began/occurred 3 day(s) ago. Severity of symptoms: At their worst the symptoms were moderate, in the emergency department the symptoms are unchanged. Modifying factors: The symptoms are alleviated by nothing, the symptoms are aggravated by nothing. Associated signs and symptoms: Pertinent positives: diarrhea, fever, rhinorrhea, sore throat, Pertinent negatives: vomiting. The patient has experienced similar episodes in the past. The patient has not recently seen a physician. Pt reports cough/sob/headache/diarrhea/myalgias/fatigue and malaise. . Historical: - Allergies: 06:57 Poultry; st1 - Home Meds: 07:52 Klonopin 1 mg Oral tab 1 tab 2 times per day [Active]; Primidone Oral [Active]; eo2 propranolol 120 mg Oral Cs24 1 cap once daily [Active]; Topamax 100 mg Oral tab 1 tab 2 times per day [Active]; - PMHx: 06:57 Anxiety; ESSENTIAL TREMORS; PTSD; ulcerative colitis; st1 - Immunization history:: Flu vaccine is not up to date. - Social history:: Smoking status: Patient/guardian denies using tobacco, Stopped _ months ago 1 Patient/guardian denies using alcohol, street drugs, IV drugs. - Family history:: not pertinent. - Hospitalizations: : No recent hospitalization is reported. 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 Eyes: Periorbital areas with no swelling, redness, or edema. Cardiovascular: Tachycardic, regular Respiratory: Mild tachypnea, no retractions, + bilateral wheezing Abdomen/GI: soft, non-tender Skin: Warm, dry MS/ Extremity: Pulses equal, no cyanosis. Neuro: Awake and alert, GCS 15 Vital Signs: 06:54 BP 132 / 93; Pulse 98; Resp 16; Temp 98.6; Pulse Ox 97% ; Weight 84.82 kg; Height 5 ft. st1 7 in. (170.18 cm); Pain 8/10; 07:32 BP 114 / 79; Pulse 91; Resp 21; Pulse Ox 94% on R/A; Pain 8/10; eo2 08:49 BP 114 / 70; Pulse 78; Resp 19; Pulse Ox 96% ; eo2 09:22 BP 121 / 86; Pulse 73; Resp 17; Pulse Ox 95% ; Pain 6/10; eo2 06:54 Body Mass Index 29.29 (84.82 kg, 170.18 cm) st1 MDM: 06:59 Patient medically screened. rn 09:10 Differential Diagnosis: Bronchitis Influenza Upper Respiratory Infection Pharyngitis rn Viral Syndrome Pneumonia. Data reviewed: vital signs, nurses notes, lab test result(s), radiologic studies, plain films, and as a result, I will discharge patient. Counseling: I had a detailed discussion with the patient and/or guardian regarding: the historical points, exam findings, and any diagnostic results supporting the discharge/admit diagnosis, lab results, radiology results, the need for outpatient follow up, to return to the emergency department if symptoms worsen or persist or if there are any questions or concerns that arise at home. Response to treatment: the patient's symptoms have mildly improved after treatment, and as a result, I will discharge patient. Special discussion: I discussed with the patient/guardian in detail that at this point there is no indication for admission to the hospital. It is understood, however, that if the symptoms persist or worsen the patient needs to return immediately for re-evaluation. 12/25 07:06 Order name: COVID-19/FLU A+B (Document "Date of Onset" if Symptomatic); Complete Time: rn 08:30 12/25 07:06 Order name: XRAY Chest (1 view); Complete Time: 09:04 rn 12/25 07:06 Order name: IV Start; Complete Time: 07:48 rn Administered Medications: 07:42 Drug: NS 0.9% 1000 ml Route: IV; Rate: 1000 ml; Site: right antecubital; eo2 08:48 Follow up: Response: No adverse reaction; IV Status: Completed infusion; IV Intake: eo2 1000ml 07:45 Drug: Xopenex (levalbuterol) 1.25 mg Route: Inhalation; eo2 08:45 Follow up: Response: No adverse reaction; Wheezing diminished eo2 07:45 Drug: SOLU-Medrol (methylPrednisoLONE) 125 mg Route: IVP; Site: right antecubital; eo2 08:48 Follow up: Response: No adverse reaction; Wheezing diminished eo2 Disposition Summary: 12/25/21 09:12 Discharge Ordered Location: Home rn Problem: new rn Symptoms: have improved rn Condition: Stable rn Diagnosis - Acute bronchitis, unspecified rn - Acute laryngopharyngitis rn Followup: rn - With: Private Physician - When: As needed - Reason: Recheck today's complaints, Re-evaluation by your physician Discharge Instructions: - Discharge Summary Sheet rn - Acute Bronchitis, Adult rn - Laryngitis rn - Pharyngitis rn Forms: - Medication Reconciliation Form rn - Thank You Letter rn - Antibiotic rn transitional - Prescription Opioid Use rn - Work release form tw5 Prescriptions: - Zithromax Z-Beny 250 mg Oral Tablet - take 1 tablet by ORAL route as directed for 5 days Day 1 - take two (2) tablets rn one time. Day 2, 3, 4 , 5 take one (1) tablet once daily.; 6 tablet; Refills: 0, Product Selection Permitted - Medrol (Beny) 4 mg Oral Tablets, Dose Pack - take 1 tablet by ORAL route as directed - follow package instructions; 1 rn packet; Refills: 0, Product Selection Permitted Signatures: Dispatcher [employer] Tyler De Leon MD MD rn [place] RN RN eo2 Lorrie Coppola RN RN st1
[2021-12-25 09:30] VITALS: TEMP 98.6
[2021-12-25 09:34] VITALS: BP 121/86; O2SAT 95
== END 2021-12-25 09:23 | disposition home or self-care (01) ==
LOC: ER 06:36
DX: J20.9 Acute bronchitis, unspecified (principal); J06.0 Acute laryngopharyngitis; Z20.822 Contact with and (suspected) exposure to COVID-19
CPT/HCPCS: 96361; 0240U; 71045; 96374; 99284; J7030; J2930

== ENCOUNTER 2022-03-18 07:42 | Emergency (ER) | payer BC ==
[2022-03-18] MEDS ORDERED: LEVALBUTEROL 1.25 MG/3 ML NEB ONE ×2 (08:28→10:58)
[2022-03-18] MEDS ORDERED: dexAMETHasone 10 MG/ML VIAL ONE (08:28)
[2022-03-18] MEDS ORDERED: NA CHLORIDE 0.9% 1,000 ML ONE (08:28)
[2022-03-18 08:51] LABS: Absolute Lymphocytes (CBC) 1.5 K/uL (0.7-4.9); Hematocrit 44.7 % (39.6-49.0); Lymphocytes % 13.5 % (15.3-44.8); MPV 8.1 fL (7.6-11.3); RBC Red Blood Cell Count 4.72 M/uL (4.33-5.43)
[2022-03-18 09:02] LABS: Potassium 4.1 mmol/L (3.5-5.1)
[2022-03-18 09:13] LABS: Urine Blood Negative (Negative); Urine Glucose Negative (Negative); Urine Protein Negative (Negative); Urine Specific Gravity 1.015 (1.005-1.030)
[2022-03-18 09:38] LABS: SARS-COV-2 RT PCR NEGATIVE (NEGATIVE)
--- NOTE | 2022-03-18 10:44 | RAD REPORT ---
EXAM DESCRIPTION: RAD - Chest Single View - 03/18/2022 10:10 am CLINICAL HISTORY: cough, sob COMPARISON: Chest Single View dated 12/25/2021; Chest Pa And Lat (2 Views) dated 11/26/2021; Chest Pa And Lat (2 Views) dated 10/27/2019; Chest Single View dated 02/10/2018 FINDINGS: Lines: None. Lungs: No evidence of edema or pneumonia. Pleural: No significant pleural effusions or pneumothorax. Cardiac: The heart size is within normal limits. Bones: No acute fractures. Other: IMPRESSION: No acute cardiopulmonary disease.
--- NOTE | 2022-03-18 12:02 | EDPHYS ---
Physician Documentation [facility] Name: Sajan Meléndez Age: 46 yrs Sex: Male : 1975 Arrival Date: 03/18/2022 Time: 07:44 Bed 23 Private MD: ROSEMARY Physician Juan George HPI: 03/18 08:17 This 46 yrs old Male presents to ER via Ambulatory with complaints of Cough, jmm Congestion, Shortness Of Breath, Pain All Over, Headache. 08:17 The patient or guardian reports cough. Onset: The symptoms/episode began/occurred jmm gradually, 1 week(s) ago. Modifying factors: The symptoms are alleviated by nothing, the symptoms are aggravated by nothing. Associated signs and symptoms: Pertinent positives: diarrhea, sore throat. The patient has experienced similar episodes in the past. Historical: - Allergies: 08:12 Poultry; iw - PMHx: 08:14 Anxiety; ESSENTIAL TREMORS; PTSD; ulcerative colitis; iw - Immunization history:: Adult Immunizations unknown. - Social history:: Smoking status: Patient/guardian denies using tobacco. ROS: 08:17 Constitutional: Positive for body aches, chills, fever. jmm 08:17 ENT: Positive for sore throat. 08:17 Respiratory: Positive for cough, shortness of breath. 08:17 All other systems are negative. Exam: 08:17 Constitutional: This is a well developed, well nourished patient who is awake, alert, jmm and in no acute distress. Head/Face: atraumatic. Eyes: EOMI, no conjunctival erythema appreciated ENT: Moist Mucus Membranes Neck: Trachea midline, Supple Chest/axilla: Normal chest wall appearance and motion. Cardiovascular: Regular rate and rhythm. No edema appreciated 08:17 Abdomen/GI: Non distended, soft Back: Normal ROM Skin: General appearance color normal MS/ Extremity: Moves all extremities, no obvious deformities appreciated, no edema noted to the lower extremities Neuro: Awake and alert Psych: Behavior is normal, Mood is normal, Patient is cooperative and pleasant 08:17 Cardiovascular: Rate: normal, Rhythm: regular. 08:17 Respiratory: mild respiratory distress is noted, Respirations: labored breathing, that is mild, Breath sounds: wheezing: that is moderate, is scattered. Vital Signs: 08:13 BP 139 / 95; Pulse 84; Resp 16; Temp 99.0; Pulse Ox 98% on R/A; iw 10:45 BP 122 / 88; Pulse 80; Resp 18 S; Pulse Ox 98% on R/A; aa5 MDM: 08:15 Patient medically screened. [facility] 11:58 Data reviewed: vital signs, nurses notes. Counseling: I had a detailed discussion with nan the patient and/or guardian regarding: the historical points, exam findings, and any diagnostic results supporting the discharge/admit diagnosis, lab results, radiology results, the need for outpatient follow up, to return to the emergency department if symptoms worsen or persist or if there are any questions or concerns that arise at home. ED course: Patient si alert and non toxic in appearance in the ED. Decreased wheezing. Patient states feeling much better. Patient understood and agrees with the plan of care. . 03/18 08:16 Order name: CBC with Diff; Complete Time: 09:04 [facility] 03/18 08:16 Order name: BMP; Complete Time: 09:04 [facility] 03/18 08:16 Order name: CPK; Complete Time: 09:04 [facility] 03/18 08:16 Order name: COVID-19/FLU A+B (Document "Date of Onset" if Symptomatic); Complete Time: [facility] 09:39 03/18 08:16 Order name: Strep; Complete Time: 09:51 [facility] 03/18 09:13 Order name: Urine Dipstick-Ancillary; Complete Time: 09:26 [facility] 03/18 08:16 Order name: Saline Lock; Complete Time: 08:55 [facility] 03/18 08:17 Order name: Urine Dipstick-Ancillary (obtain specimen); Complete Time: 09:13 [facility] 03/18 08:18 Order name: Chest Single View XRAY; Complete Time: 10:46 [facility] 03/18 09:52 Order name: Throat Culture EDMS Administered Medications: 08:40 Drug: Decadron - Dexamethasone 10 mg Route: IVP; Site: right antecubital; aa5 09:13 Follow up: Response: No adverse reaction aa5 08:40 Drug: NS 0.9% 1000 ml Route: IV; Rate: 1 bolus; Site: right antecubital; aa5 09:30 Follow up: IV Status: Completed infusion; IV Intake: 1000ml aa5 08:40 Drug: Xopenex (levalbuterol) (3) 1.25 mg Route: Inhalation; aa5 10:54 Drug: Xopenex (levalbuterol) (3) 1.25 mg Route: Inhalation; aa5 Disposition Summary: 03/18/22 12:01 Discharge Ordered Location: Home jmm Condition: Stable jmm Diagnosis - Wheezing jmm - Acute pharyngitis, unspecified jmm Followup: [facility] - With: Evan Mccoy MD - When: 2 - 3 days - Reason: Recheck today's complaints, Continuance of care, Re-evaluation by your physician Discharge Instructions: - Discharge Summary Sheet jm - Bronchospasm, Adult jmm - Pharyngitis [facility] Forms: - Medication Reconciliation Form [facility] - Thank You Letter [facility] - Antibiotic Education [facility] - Prescription Opioid Use [facility] - Work release form aa5 Prescriptions: - albuterol sulfate 90 mcg/actuation Inhalation HFA aerosol inhaler - inhale 2 puff by INHALATION route every 4 hours; 1 Pump; Refills: 0, Product [facility] Selection Permitted - Prednisone 20 mg Oral Tablet - take 3 tablets by ORAL route once daily for 5 days; 15 tablet; Refills: 0, [facility] Product Selection Permitted - Zithromax Z-Beny 250 mg Oral Tablet - take 1 tablet by ORAL route as directed for 5 days Day 1 - take two (2) tablets [facility] one time. Day 2, 3, 4 , 5 take one (1) tablet once daily.; 6 tablet; Refills: 0, Product Selection Permitted Signatures: Dispatcher [employer] Lasha Stroud PA PA jmm Williams, Irene, RN RN iw Calderon, Audri, RN RN aa5
--- NOTE | 2022-03-18 12:02 | ER ---
Nurse's Notes [facility] Name: Sajan Meléndez Age: 46 yrs Sex: Male : 1975 Arrival Date: 03/18/2022 Time: 07:44 Bed 23 Private MD: Diagnosis: Wheezing;Acute pharyngitis, unspecified Presentation: 03/18 08:13 Chief complaint: Patient states: diff breathing, coughing up green mucous, back pain , iw started having itchy throat on Friday, has been coughing all night. Coronavirus screen: Client presents with at least one sign or symptom that may indicate coronavirus-19. Ebola Screen: Patient negative for fever greater than or equal to 101.5 degrees Fahrenheit, and additional compatible Ebola Virus Disease symptoms Patient denies exposure to infectious person. Patient denies travel to an Ebola-affected area in the 21 days before illness onset. No symptoms or risks identified at this time. Initial Sepsis Screen: Does the patient meet any 2 criteria? No. Patient's initial sepsis screen is negative. Does the patient have a suspected source of infection? No. Patient's initial sepsis screen is negative. 08:13 Method Of Arrival: Ambulatory iw 08:14 Risk Assessment: Do you want to hurt yourself or someone else? Patient reports no iw desire to harm self or others. Onset of symptoms was March 16, 2022. 08:14 Acuity: DELMI 3 iw Historical: - Allergies: 08:12 Poultry; iw - PMHx: 08:14 Anxiety; ESSENTIAL TREMORS; PTSD; ulcerative colitis; iw - Immunization history:: Adult Immunizations unknown. - Social history:: Smoking status: Patient/guardian denies using tobacco. Screenin:15 Abuse screen: Denies threats or abuse. Nutritional screening: No deficits noted. aa5 Tuberculosis screening: No symptoms or risk factors identified. Fall Risk None identified. Assessment: 08:15 General: Appears uncomfortable, Behavior is calm, cooperative. Pain: Denies pain. aa5 Neuro: Level of Consciousness is awake, alert, obeys commands, Oriented to person, place, time, situation. Cardiovascular: Heart tones S1 S2 present Capillary refill < 3 seconds is brisk in bilateral fingers Rhythm is regular. Respiratory: Reports shortness of breath cough that is productive, Airway is patent Respiratory effort is even, unlabored, Respiratory pattern is regular, symmetrical, Breath sounds with wheezes bilaterally. GI: Abdomen is round non-distended, Bowel sounds present X 4 quads. Abd is soft and non tender X 4 quads. : No signs and/or symptoms were reported regarding the genitourinary system. EENT: No signs and/or symptoms were reported regarding the EENT system. Derm: Skin is pink, warm \T\ dry. Musculoskeletal: Range of motion: intact in all extremities. 08:40 Reassessment: Patient is alert, oriented x 3, equal unlabored respirations, skin aa5 warm/dry/pink. 09:00 Reassessment: Patient is alert, oriented x 3, equal unlabored respirations, skin aa5 warm/dry/pink. Patient states symptoms have not improved. 09:15 Reassessment: Awaiting x-ray . aa5 09:50 Reassessment: x-ray at bedside . aa5 10:51 Reassessment: Pt reports slight improvement of SOB, wheezing auscultated bilaterally, aa5 PA was notified. . 11:30 Reassessment: Patient is alert, oriented x 3, equal unlabored respirations, skin aa5 warm/dry/pink. Patient states symptoms have improved. Respiratory: wheezing improved bilaterally. 12:30 Reassessment: Patient is alert, oriented x 3, equal unlabored respirations, skin aa5 warm/dry/pink. Vital Signs: 08:13 BP 139 / 95; Pulse 84; Resp 16; Temp 99.0; Pulse Ox 98% on R/A; iw 10:45 BP 122 / 88; Pulse 80; Resp 18 S; Pulse Ox 98% on R/A; aa5 ED Course: 07:44 Patient arrived in ED. as 08:00 Lasha Farah PA is PHCP. jm 08:00 Juan George MD is Attending Physician. jm 08:14 Triage completed. iw 08:15 Initial lab(s) drawn, by me, sent to lab. COVID swab sent to lab. Flu and/or RSV swab aa5 sent to lab. Strep swab sent to lab. Inserted saline lock: 20 gauge in right antecubital area, using aseptic technique. Blood collected. 08:15 Patient has correct armband on for positive identification. Bed in low position. Call aa5 light in reach. Side rails up X 1. Adult w/ patient. 08:15 Arm band placed on. aa5 08:16 Rhina Harmon, RN is Primary Nurse. aa5 10:12 Chest Single View XRAY In Process Unspecified. EDMS 12:01 Evan Mccoy MD is Referral Physician. [facility] 12:30 No provider procedures requiring assistance completed. IV discontinued, intact, aa5 bleeding controlled, No redness/swelling at site. Pressure dressing applied. Administered Medications: 08:40 Drug: Decadron - Dexamethasone 10 mg Route: IVP; Site: right antecubital; aa5 09:13 Follow up: Response: No adverse reaction aa5 08:40 Drug: NS 0.9% 1000 ml Route: IV; Rate: 1 bolus; Site: right antecubital; aa5 09:30 Follow up: IV Status: Completed infusion; IV Intake: 1000ml aa5 08:40 Drug: Xopenex (levalbuterol) (3) 1.25 mg Route: Inhalation; aa5 10:54 Drug: Xopenex (levalbuterol) (3) 1.25 mg Route: Inhalation; aa5 Intake: 09:30 IV: 1000ml; Total: 1000ml. aa5 Outcome: 12:01 Discharge ordered by . [facility] 12:30 Discharged to home ambulatory, with significant other. aa5 12:30 Condition: improved 12:30 Discharge instructions given to patient, Instructed on discharge instructions, follow up and referral plans. medication usage, Demonstrated understanding of instructions, follow-up care, medications, Prescriptions given X 3. 12:44 Patient left the ED. aa5 Signatures: Dispatcher [employer] EDMS Lasha Farah PA PA jmm Martinez, Amelia as Williams, Irene, RN Rhina High, RN RN aa5
[2022-03-18 13:21] VITALS: BP 139/95; TEMP 99; O2SAT 98
== END 2022-03-18 12:44 | disposition home or self-care (01) ==
LOC: ER 07:42
DX: R06.2 Wheezing (principal); J02.9 Acute pharyngitis, unspecified; R05.9 Cough, unspecified; F43.10 Post-traumatic stress disorder, unspecified; Z20.822 Contact with and (suspected) exposure to COVID-19; Z91.018 Allergy to other foods
CPT/HCPCS: 96361; 87070; 85025; 80048; 36415; 82550; 87081; 81003; 0240U; 71045; 96374; 99284; J1100; J7030

== ENCOUNTER 2022-10-01 07:27 | Emergency (ER) | payer BC ==
[2022-10-01] MEDS ORDERED: MORPHINE 4 MG/ML SYR ONE ×2 (08:00→09:17)
[2022-10-01] MEDS ORDERED: NA CHLORIDE 0.9% 1,000 ML ONE (08:01)
[2022-10-01] MEDS ORDERED: ONDANSETRON 4 MG/2 ML VIAL ONE (08:01)
[2022-10-01 08:11] LABS: Absolute Lymphocytes (CBC) 1.6 K/uL (0.7-4.9); Hematocrit 41.4 % (39.6-49.0); Lymphocytes % 19.2 % (15.3-44.8); MCV 92.9 fL (80-100); MPV 7.9 fL (7.6-11.3); RBC Red Blood Cell Count 4.46 M/uL (4.33-5.43)
[2022-10-01 08:12] LABS: Urine Blood Negative (Negative); Urine Glucose Negative (Negative); Urine Protein Negative (Negative); Urine Specific Gravity 1.015 (1.005-1.030)
[2022-10-01 08:24] LABS: Urine Mucus 1+ /HPF (None Seen); Urine RBC <5 /HPF (None Seen)
[2022-10-01 08:30] LABS: Albumin 3.7 g/dL (3.4-5.0); Bilirubin Total 0.5 mg/dL (0.2-1.0); Protein, Total 7.3 g/dL (6.4-8.2)
[2022-10-01 08:31] LABS: Potassium 3.8 mmol/L (3.5-5.1)
--- NOTE | 2022-10-01 09:03 | RAD REPORT ---
EXAM DESCRIPTION: CT - Abdomen Pelvis W Contrast - 10/01/2022 8:55 am CLINICAL HISTORY: Abdominal pain COMPARISON: 2019 TECHNIQUE: Computed axial tomography of the abdomen pelvis was obtained. 100 cc Isovue-300 was admin istered intravenously. Oral contrast was not requested which limits evaluation of bowel and appendix All CT scans are performed using dose optimization technique as appropriate and may include automated exposure control or mA/KV adjustment according to patient size. FINDINGS: The liver, spleen, pancreas, adrenal and kidneys appear unremarkable. There is no evidence of diverticulitis. Appendectomy IMPRESSION: No acute abnormality is displayed.
--- NOTE | 2022-10-01 09:41 | EDPHYS ---
Physician Documentation [facility] Name: Sajan Meléndez Age: 47 yrs Sex: Male : 1975 Arrival Date: 10/01/2022 Time: 07:29 Bed 6 Private MD: Drake Yuan E ED Physician Redd Manzo HPI: 10/01 09:20 This 47 yrs old Male presents to ER via Ambulatory with complaints of Abdominal Pain. rt 09:20 The patient presents with abdominal pain in the lower abdomen. Onset: The rt symptoms/episode began/occurred 4 day(s) ago. The symptoms do not radiate. Associated signs and symptoms: Pertinent positives: diarrhea. Associated signs and symptoms: Pertinent positives: nausea and vomiting. The symptoms are described as achy. Modifying factors: The symptoms are alleviated by nothing. Severity of pain: At its worst the pain was moderate. Patient presents to the ED with 4 days of lower abdominal pain, achy in nature, nonradiating. The patient reports diarrhea which she states is bloody. He states that he has a history of ulcerative colitis. The patient reports nausea and vomiting, no hematemesis. Denies other acute complaints at this time, symptoms are moderate in severity, no other aggravating or alleviating factors.. Historical: - Allergies: 07:35 Poultry; iw - Home Meds: 07:35 Klonopin 1 mg Oral tab 1 tab 2 times per day [Active]; propranolol 120 mg Oral Cs24 1 iw cap once daily [Active]; Topamax 100 mg Oral tab 1 tab 2 times per day [Active]; - PMHx: 07:35 Anxiety; ESSENTIAL TREMORS; PTSD; ulcerative colitis; iw - Immunization history:: Client reports having NOT received the Covid vaccine. - Social history:: Smoking status: Patient reports the use of cigarette tobacco products. - Family history:: not pertinent. ROS: 09:20 Constitutional: Negative for fever, chills, and weight loss, Eyes: Negative for injury, rt pain, redness, and discharge, ENT: Negative for injury, pain, and discharge, Neck: Negative for injury, pain, and swelling, Cardiovascular: Negative for chest pain, palpitations, and edema, Respiratory: Negative for shortness of breath, cough, wheezing, and pleuritic chest pain, MS/Extremity: Negative for injury and deformity, Skin: Negative for injury, rash, and discoloration, Neuro: Negative for headache, weakness, numbness, tingling, and seizure, Psych: Negative for depression, anxiety, suicide ideation, homicidal ideation, and hallucinations. 09:20 Abdomen/GI: Positive for abdominal pain, nausea, vomiting, and diarrhea. Exam: 09:20 Constitutional: This is a well developed, well nourished patient who is awake, alert, rt and in no acute distress. Head/Face: Normocephalic, atraumatic. Eyes: Pupils equal round and reactive to light, extra-ocular motions intact. Lids and lashes normal. Conjunctiva and sclera are non-icteric and not injected. Cornea within normal limits. Periorbital areas with no swelling, redness, or edema. ENT: Nares patent. No nasal discharge, no septal abnormalities noted. Tympanic membranes are normal and external auditory canals are clear. Oropharynx with no redness, swelling, or masses, exudates, or evidence of obstruction, uvula midline. Mucous membranes moist. Neck: Trachea midline, no thyromegaly or masses palpated, and no cervical lymphadenopathy. Supple, full range of motion without nuchal rigidity, or vertebral point tenderness. No Meningismus. Chest/axilla: Normal chest wall appearance and motion. Nontender with no deformity. No lesions are appreciated. Cardiovascular: Regular rate and rhythm with a normal S1 and S2. No gallops, murmurs, or rubs. Normal PMI, no JVD. No pulse deficits. Respiratory: Lungs have equal breath sounds bilaterally, clear to auscultation and percussion. No rales, rhonchi or wheezes noted. No increased work of breathing, no retractions or nasal flaring. Skin: Warm, dry with normal turgor. Normal color with no rashes, no lesions, and no evidence of cellulitis. MS/ Extremity: Pulses equal, no cyanosis. Neurovascular intact. Full, normal range of motion. Neuro: Awake and alert, GCS 15, oriented to person, place, time, and situation. Cranial nerves II-XII grossly intact. Motor strength 5/5 in all extremities. Sensory grossly intact. Cerebellar exam normal. Normal gait. Psych: Awake, alert, with orientation to person, place and time. Behavior, mood, and affect are within normal limits. 09:20 Abdomen/GI: Mild tenderness to the lower abdomen, no rebound guarding or distention. Vital Signs: 07:36 BP 140 / 96; Pulse 103; Resp 18; Temp 98.1; Pulse Ox 98% on R/A; Weight 97.52 kg; Pain iw 8/10; 08:00 Pain 8/10; db 08:30 BP 115 / 73; Pulse 76; Resp 18; Pulse Ox 100% on R/A; db 08:45 Pain 7/10; db 09:30 BP 120 / 71; Pulse 71; Resp 18; Pulse Ox 99% on R/A; db 10:16 BP 120 / 80; Pulse 60; Resp 16; Pulse Ox 99% ; Pain 5/10; db [place] Coma Score: 10:16 Eye Response: spontaneous(4). Verbal Response: oriented(5). Motor Response: obeys db commands(6). Total: 15. MDM: 07:45 Patient medically screened. rt 09:43 Differential diagnosis: bowel obstruction, Cholelithiasis, gastritis, GI Bleed, rt non-specific abd pain, Peptic Ulcer Disease, Perf. Duodenal Ulcer, Peritonitis, Pyelonephritis. Data reviewed: vital signs, nurses notes, old medical records, lab test result(s), radiologic studies. ED course: Patient presented with abdominal pain, bloody diarrhea. He does have a history of ulcerative colitis. He has a nonperitoneal abdominal examination, I have a very low suspicion for an upper GI bleed, denies any hematemesis. CT scan is unremarkable, labs are benign. Suspect the patient has an exacerbation of his ulcerative colitis. We will treat patient with steroids. Pain is improved with treatment in the ED. He is stable for outpatient care, return precautions discussed. Patient instructed to follow-up with gastroenterology for further care.. 10/01 07:50 Order name: CBC with Diff; Complete Time: 08:33 rt 10/01 07:50 Order name: CMP; Complete Time: 08:33 rt 10/01 07:50 Order name: Lipase; Complete Time: 08:33 rt 10/01 07:50 Order name: Urine Microscopic Only; Complete Time: 08:33 rt 10/01 07:50 Order name: CT Abd/Pelvis - IV Contrast Only; Complete Time: 09:05 rt 10/01 08:12 Order name: Urine Dipstick-Ancillary; Complete Time: 08:33 EDMS 10/01 07:50 Order name: IV Saline Lock; Complete Time: 08:15 rt 10/01 07:50 Order name: Labs collected and sent; Complete Time: 08:15 rt 10/01 07:50 Order name: Urine Dipstick-Ancillary (obtain specimen); Complete Time: 08:15 rt Administered Medications: 08:02 Drug: NS 0.9% 1000 ml Route: IV; Rate: 1 bolus; Site: right antecubital; db 10:15 Follow up: Response: No adverse reaction; IV Status: Completed infusion; IV Intake: db 1000ml 08:02 Drug: Zofran (Ondansetron) 4 mg Route: IVP; Site: right antecubital; db 09:15 Follow up: Response: No adverse reaction db 08:02 Drug: morphine 4 mg Route: IVP; Infused Over: 4 mins; Site: right antecubital; db 09:15 Follow up: Response: No adverse reaction db 09:20 Drug: morphine 4 mg Route: IVP; Infused Over: 4 mins; Site: right antecubital; db 10:20 Follow up: Response: No adverse reaction; RASS: Alert and Calm (0) jd3 10:21 Drug: SOLU-Medrol (methylPrednisoLONE) 125 mg Route: IVP; Site: right antecubital; db 10:25 Follow up: Response: No adverse reaction; Medication administered at discharge. jd3 Disposition Summary: 10/01/22 09:41 Discharge Ordered Location: Home rt Problem: an acute exacerbation rt Symptoms: have improved rt Condition: Stable rt Diagnosis - Abdominal pain, unspecified rt - Diarrhea, unspecified rt Followup: rt - With: Private Physician - When: 2 - 3 days - Reason: Discharge Instructions: - Discharge Summary Sheet rt - Ulcerative Colitis, Adult rt Forms: - Work release form db - Medication Reconciliation Form rt - Thank You Letter rt - Antibiotic Education rt - Prescription Opioid Use rt Prescriptions: - Prednisone 20 mg Oral Tablet - take 2 tablets by ORAL route once daily for 5 days; 10 tablet; Refills: 0, rt Product Selection Permitted - Pepcid 20 mg Oral Tablet - take 1 tablet by ORAL route once daily for 10 days; 10 tablet; Refills: 0, rt Product Selection Permitted - Tylenol-Codeine #3 300 mg-30 mg Oral - take 1 tablet by ORAL route every 6 hours; 12 tablet; Refills: 0, Product rt Selection Permitted Signatures: Dispatcher [employer] Preeti Charles, Saranya Zamudio RN RN RN Redd Gu MD MD rt Davies, Jonathon RN jd3
--- NOTE | 2022-10-01 09:41 | ER ---
Nurse's Notes [facility] Name: Sajan Meléndez Age: 47 yrs Sex: Male : 1975 Arrival Date: 10/01/2022 Time: 07:29 Bed 6 Private MD: Drake Yuan E Diagnosis: Abdominal pain, unspecified;Diarrhea, unspecified Presentation: 10/01 07:35 Chief complaint: Patient states: vomiting and diarrhea since Friday and severe gut iw pain. Coronavirus screen: Client presents with at least one sign or symptom that may indicate coronavirus-19. Ebola Screen: Patient negative for fever greater than or equal to 101.5 degrees Fahrenheit, and additional compatible Ebola Virus Disease symptoms Patient denies exposure to infectious person. Patient denies travel to an Ebola-affected area in the 21 days before illness onset. No symptoms or risks identified at this time. Initial Sepsis Screen: Does the patient meet any 2 criteria? No. Patient's initial sepsis screen is negative. Does the patient have a suspected source of infection? No. Patient's initial sepsis screen is negative. Risk Assessment: Do you want to hurt yourself or someone else? Patient reports no desire to harm self or others. 07:35 Method Of Arrival: Ambulatory iw 07:35 Acuity: DELMI 3 iw 10:26 Onset of symptoms was September 29, 2022. jd3 Historical: - Allergies: 07:35 Poultry; iw - Home Meds: 07:35 Klonopin 1 mg Oral tab 1 tab 2 times per day [Active]; propranolol 120 mg Oral Cs24 1 iw cap once daily [Active]; Topamax 100 mg Oral tab 1 tab 2 times per day [Active]; - PMHx: 07:35 Anxiety; ESSENTIAL TREMORS; PTSD; ulcerative colitis; iw - Immunization history:: Client reports having NOT received the Covid vaccine. - Social history:: Smoking status: Patient reports the use of cigarette tobacco products. - Family history:: not pertinent. Screenin:42 Abuse screen: Denies threats or abuse. Denies injuries from another. Nutritional db screening: No deficits noted. Tuberculosis screening: No symptoms or risk factors identified. Fall Risk None identified. No fall in past 12 months (0 pts). No secondary diagnosis (0 pts). No IV (0 pts). Ambulatory Aid- None/Bed Rest/Nurse Assist (0 pts). Gait- Normal/Bed Rest/Wheelchair (0 pts) Mental Status- Oriented to own ability (0 pts). Total García Fall Scale indicates No Risk (0-24 pts). Assessment: 07:42 Reassessment: Patient appears in no apparent distress at this time. Patient is alert, db oriented x 3, equal unlabored respirations, skin warm/dry/pink. patient states started having abdominal pain on Friday then Friday morning started having nausea vomiting and diarrhea. Today stated had diarrhea with redness. General: Appears in no apparent distress. comfortable, Behavior is calm, cooperative, appropriate for age, quiet. Pain: Complains of pain in abdomen. Neuro: No deficits noted. Level of Consciousness is awake, alert, obeys commands, Oriented to person, place, time, situation, Appropriate for age Speech is normal, Facial symmetry appears normal, Pupils are PERRLA. Cardiovascular: No deficits noted. Respiratory: No deficits noted. Airway is patent Respiratory effort is even, unlabored, Respiratory pattern is regular, symmetrical. GI: Abdomen is flat, non-distended, Last BM was October 01, 2022. Bowel sounds present X 4 quads. Abd is soft X 4 quads Reports diarrhea, bloody stool, nausea, vomiting. : No deficits noted. No signs and/or symptoms were reported regarding the genitourinary system. EENT: No deficits noted. No signs and/or symptoms were reported regarding the EENT system. Derm: No deficits noted. No signs and/or symptoms reported regarding the dermatologic system. Vital Signs: 07:36 BP 140 / 96; Pulse 103; Resp 18; Temp 98.1; Pulse Ox 98% on R/A; Weight 97.52 kg; Pain iw 8/10; 08:00 Pain 8/10; db 08:30 BP 115 / 73; Pulse 76; Resp 18; Pulse Ox 100% on R/A; db 08:45 Pain 7/10; db 09:30 BP 120 / 71; Pulse 71; Resp 18; Pulse Ox 99% on R/A; db 10:16 BP 120 / 80; Pulse 60; Resp 16; Pulse Ox 99% ; Pain 5/10; db Vitals: 09:30 Cardiac Rhythm Assessment. db Milly Coma Score: 10:16 Eye Response: spontaneous(4). Verbal Response: oriented(5). Motor Response: obeys db commands(6). Total: 15. ED Course: 07:29 Patient arrived in ED. mr 07:29 Drake Yuan MD is Private Physician. mr 07:35 Triage completed. iw 07:36 Arm band placed on. iw 07:37 Redd Manzo MD is Attending Physician. rt 07:42 Saranya Bello, RN is Primary Nurse. db 07:42 Patient has correct armband on for positive identification. Bed in low position. Call db light in reach. Side rails up X 1. 07:42 No provider procedures requiring assistance completed. db 08:00 Inserted saline lock: 20 gauge in right antecubital area, using aseptic technique. db Blood collected. Patient maintains SpO2 saturation greater than 95% on room air. 08:56 CT Abd/Pelvis - IV Contrast Only In Process Unspecified. EDMS 09:30 Pulse ox on. NIBP on. db 10:26 IV discontinued, intact, bleeding controlled, No redness/swelling at site. Pressure jd3 dressing applied. Administered Medications: 08:02 Drug: NS 0.9% 1000 ml Route: IV; Rate: 1 bolus; Site: right antecubital; db 10:15 Follow up: Response: No adverse reaction; IV Status: Completed infusion; IV Intake: db 1000ml 08:02 Drug: Zofran (Ondansetron) 4 mg Route: IVP; Site: right antecubital; db 09:15 Follow up: Response: No adverse reaction db 08:02 Drug: morphine 4 mg Route: IVP; Infused Over: 4 mins; Site: right antecubital; db 09:15 Follow up: Response: No adverse reaction db 09:20 Drug: morphine 4 mg Route: IVP; Infused Over: 4 mins; Site: right antecubital; db 10:20 Follow up: Response: No adverse reaction; RASS: Alert and Calm (0) jd3 10:21 Drug: SOLU-Medrol (methylPrednisoLONE) 125 mg Route: IVP; Site: right antecubital; db 10:25 Follow up: Response: No adverse reaction; Medication administered at discharge. jd3 Medication: 07:42 VIS not applicable for this client. db Intake: 10:15 IV: 1000ml; Total: 1000ml. db Outcome: 09:41 Discharge ordered by . rt 10:26 Discharged to home ambulatory, with family. jd3 10:26 Condition: stable 10:26 Discharge instructions given to family, Instructed on discharge instructions, follow up and referral plans. medication usage, Demonstrated understanding of instructions, follow-up care, medications, Prescriptions given X 2. 10:26 Patient left the ED. jd3 Signatures: Dispatcher [employer] EDWI Miranda Brunson mr Preeti Webb RN RN iw Davies, Jonathon, RN RN jSaranya Baker RN RN db [place], Ryan, MD MD rt
[2022-10-01] MEDS ORDERED: METHYLPREDNISOLONE 125 MG INJ ONE (10:21)
[2022-10-01 10:40] VITALS: BP 140/96; TEMP 98.1; O2SAT 98
[2022-10-01] MEDS ORDERED: ALBUTEROL 2.5 MG/3 ML NEB SOL ONE (11:52)
[2022-10-01] MEDS ORDERED: IPRATROPIUM BROM 0.5MG/2.5ML ONE (11:52)
== END 2022-10-01 10:26 | disposition home or self-care (01) ==
LOC: ER 07:27
DX: R19.7 Diarrhea, unspecified (principal); I10 Essential (primary) hypertension; F41.9 Anxiety disorder, unspecified; Z91.018 Allergy to other foods; Z72.0 Tobacco use
CPT/HCPCS: 85025; 36415; 83690; 80053; 74177; Q9967; J7613; J7644; J7030; J2930; J2405; 81003; 81015

== ENCOUNTER 2023-01-16 08:00 | Emergency (ER) | payer BC ==
[2023-01-16 08:34] LABS: Absolute Lymphocytes (CBC) 1.7 K/uL (0.7-4.9); Lymphocytes % 21.8 % (15.3-44.8); MCV 95.5 fL (80-100); MPV 8.5 fL (7.6-11.3); RBC Red Blood Cell Count 5.03 M/uL (4.33-5.43)
[2023-01-16 08:50] LABS: Bilirubin Total 0.5 mg/dL (0.2-1.0); Potassium 3.2 mmol/L (3.5-5.1); Protein, Total 7.5 g/dL (6.4-8.2)
[2023-01-16 09:14] LABS: SARS-COV-2 RT PCR NEGATIVE (NEGATIVE)
[2023-01-16] MEDS ORDERED: POTASSIUM CL SA 10 MEQ TAB PO ONE ×2 (09:37→09:43)
[2023-01-16] MEDS ORDERED: MORPHINE 4 MG/ML SYR ONE (09:37)
--- NOTE | 2023-01-16 09:45 | RAD REPORT ---
EXAM DESCRIPTION: CT - Abdomen Pelvis W Contrast - 01/16/2023 9:23 am CLINICAL HISTORY: Abd pain;Nausea / vomiting Chills. Body aches. COMPARISON: Abdomen Pelvis W Contrast dated 10/01/2022; Abdomen Pelvis W Contrast dated 9; Abdomen Pelvis W Contrast dated 12/25/2017; Abdomen Pelvis W Contrast dated 06/05/2016 TECHNIQUE: Thin cut axial CT imaging of the abdomen and pelvis was performed following intravenous a dministration of 95 mL Isovue 300. Multiplanar reformats were generated and reviewed. All CT scans are performed using dose optimization technique as appropriate and may include automated exposure control or mA/KV adjustment according to patient size. FINDINGS: No suspicious findings in the lung bases. The liver, spleen, and pancreas show no suspicious findings. Gallbladder and biliary tree are also wi thout suspicious finding. Symmetric renal function is seen with no hydronephrosis or suspicious renal mass. Two- 3 millimeter l eft superior pole nonobstructing calculus. No dilated bowel loops or bowel wall thickening. No free air, free fluid or inflammatory stranding. N o hernia, mass or bulky lymphadenopathy. The urinary bladder is without significant finding. No suspicious bony findings. IMPRESSION: No acute intra-abdominal process. Incidentally noted 2-3 millimeter left superior pole renal calculus.
[2023-01-16 10:24] VITALS: TEMP 97.2
[2023-01-16 10:34] VITALS: BP 129/79; O2SAT 100
--- NOTE | 2023-01-31 15:26 | ER ---
Nurse's Notes [facility] Name: Sajan Meléndez Age: 47 yrs Sex: Male : 1975 Arrival Date: 01/16/2023 Time: 08:02 Bed 4 Private MD: Diagnosis: Abdominal pain, unspecified;Infectious gastroenteritis and colitis, unspecified Presentation: 01/16 08:05 Chief complaint: Body aches, chills, and N/V/D x 5 days. Tolerating small amounts of hb water. Coronavirus screen: At this time, the client does not indicate any symptoms associated with coronavirus-19. Ebola Screen: No symptoms or risks identified at this time. Initial Sepsis Screen: Does the patient meet any 2 criteria? No. Patient's initial sepsis screen is negative. Does the patient have a suspected source of infection? No. Patient's initial sepsis screen is negative. Risk Assessment: Do you want to hurt yourself or someone else? Patient reports no desire to harm self or others. Onset of symptoms was January 12, 2023. 08:05 Method Of Arrival: Ambulatory 08:05 Acuity: DELMI 3 hb Triage Assessment: 09:49 General: Appears in no apparent distress. uncomfortable, Behavior is calm, cooperative. db Pain: Complains of pain in abdomen. GI: Abdomen is flat. Historical: - Allergies: 08:07 Poultry; hb - PMHx: 08:07 Anxiety; ESSENTIAL TREMORS; PTSD; ulcerative colitis; hb - Immunization history:: Adult Immunizations unknown. - Family history:: not pertinent. - Hospitalizations: : No recent hospitalization is reported. Screenin:36 [facility] ED Fall Risk Assessment (Adult) History of falling in the last 3 months, db including since admission No falls in past 3 months (0 pts) Confusion or Disorientation No (0 pts) Intoxicated or Sedated No (0 pts) Impaired Gait No (0 pts) Mobility Assist Device Used No (0 pt) Altered Elimination No (0 pt) Score/Fall Risk Level 0 - 2 = Low Risk Oriented to surroundings, Maintained a safe environment. Abuse screen: Denies threats or abuse. Denies injuries from another. Nutritional screening: No deficits noted. Tuberculosis screening: No symptoms or risk factors identified. Assessment: 08:14 Reassessment: No changes from previously documented assessment. ll1 09:30 Reassessment: Patient appears in no apparent distress at this time. Patient and/or db family updated on plan of care and expected duration. Pain level reassessed. Patient is alert, oriented x 3, equal unlabored respirations, skin warm/dry/pink. General: Appears in no apparent distress. comfortable, Behavior is calm, cooperative. Pain: Complains of pain in abdomen and left lower quadrant. Neuro: Level of Consciousness is awake, alert, obeys commands, Oriented to person, place, time. Respiratory: Airway is patent Respiratory effort is even, unlabored, Respiratory pattern is regular, symmetrical. GI: Bowel sounds present X 4 quads. Abd is soft Abdomen is tender to palpation in left upper quadrant Reports lower abdominal pain, diarrhea. 10:12 Reassessment: Patient appears in no apparent distress at this time. Patient and/or db family updated on plan of care and expected duration. Pain level reassessed. Patient is alert, oriented x 3, equal unlabored respirations, skin warm/dry/pink. Patient states feeling better. Patient states symptoms have improved. Vital Signs: 08:05 BP 154 / 108; Pulse 104; Resp 18; Temp 97.2; Pulse Ox 100% on R/A; Weight 97.52 kg; hb Height 5 ft. 7 in. ; Pain 6/10; 08:30 BP 121 / 86; Pulse 86; Resp 16; Pulse Ox 99% on R/A; db 09:30 BP 129 / 79; Pulse 66; Resp 16; Pulse Ox 100% on R/A; db 08:05 Body Mass Index 33.67 (97.52 kg, 170.18 cm) hb 08:05 Pain Scale: Adult hb ED Course: 08:02 Patient arrived in ED. am2 08:07 Triage completed. hb 08:08 Tyler Rivas MD is Attending Physician. rn 08:28 Inserted saline lock: 22 gauge in right antecubital area, using aseptic technique. db Blood collected. 08:34 Saranya Bello, ALEXANDREA is Primary Nurse. db 08:38 No apparent distress. Resting quietly. db 08:38 Patient has correct armband on for positive identification. Bed in low position. Side db rails up X 1. 09:25 CT Abd/Pelvis - IV Contrast Only In Process Unspecified. EDMS 10:14 Client placed on continuous cardiac and pulse oximetry monitoring. NIBP monitoring db applied. Pulse ox on. Warm blanket given. 10:14 No provider procedures requiring assistance completed. IV discontinued, intact, db bleeding controlled, No redness/swelling at site. Administered Medications: 08:28 Drug: NS 0.9% IV 1000 ml Route: IV; Rate: 1 bolus; Site: right antecubital; db 09:48 Follow up: Response: No adverse reaction; IV Status: Completed infusion; IV Intake: db 1000ml 08:34 Drug: Ondansetron IVP 4 mg Route: IVP; Site: right antecubital; db 09:48 Follow up: Response: No adverse reaction db 09:35 Drug: morphine IVP or IV 4 mg Route: IVP; Infused Over: 4 mins; Site: right antecubital;db 10:15 Follow up: Response: No adverse reaction db 09:38 Drug: Potassium Chloride PO 40 mEq Route: PO; db 10:15 Follow up: Response: No adverse reaction db Intake: 09:48 IV: 1000ml; Total: 1000ml. db Outcome: 09:49 Discharge ordered by . rn 10:12 Patient left the ED. jl7 10:14 Discharged to home ambulatory. db 10:14 Condition: stable 10:14 Discharge instructions given to patient, Instructed on discharge instructions, follow up and referral plans. Prescriptions given X 2. Signatures: Dispatcher [employer] Tyler De Leon MD MD rn Baxter, Heather RN RN Chaz Najera RN RN jl7 Luz Peguero Lynsay RN RN ll1 Saranya Bello RN RN db
--- NOTE | 2023-01-31 15:26 | EDPHYS ---
Physician Documentation [facility] Name: Sajan Meléndez Age: 47 yrs Sex: Male : 1975 Arrival Date: 01/16/2023 Time: 08:02 Bed 4 Private MD: ED Physician Tyler Rivas HPI: 01/16 08:44 This 47 yrs old Male presents to ER via Ambulatory with complaints of Abdominal Pain, rn Nausea/Vomiting/Diarrhea. 08:44 The patient presents to the emergency department with nausea, vomiting, diarrhea, rn abdominal pain, of the left upper quadrant and left lower quadrant. Onset: The symptoms/episode began/occurred 4 day(s) ago. Possible causes: unknown. The symptoms are aggravated by nothing. The symptoms are alleviated by nothing. Associated signs and symptoms: Pertinent positives: abdominal pain, diarrhea, nausea, vomiting, Pertinent negatives: fever, GI bleeding. Severity of symptoms: At their worst the symptoms were moderate in the emergency department the symptoms are unchanged. The patient has not experienced similar symptoms in the past. The patient has not recently seen a physician. Historical: - Allergies: 08:07 Poultry; hb - PMHx: 08:07 Anxiety; ESSENTIAL TREMORS; PTSD; ulcerative colitis; hb - Immunization history:: Adult Immunizations unknown. - Family history:: not pertinent. - Hospitalizations: : No recent hospitalization is reported. ROS: 08:44 Constitutional: Negative for fever, chills, and weight loss, Eyes: Negative for injury, rn pain, redness, and discharge, Neck: Negative for injury, pain, and swelling, Cardiovascular: Negative for chest pain, palpitations, and edema, Respiratory: Negative for shortness of breath, cough, wheezing, and pleuritic chest pain, Abdomen/GI: + abd pain/nausea/vomiting/diarrhea Back: Negative for injury and pain, MS/Extremity: Negative for injury and deformity, Skin: Negative for injury, rash, and discoloration, Neuro: Negative for headache, numbness, tingling, and seizure. Exam: 08:44 Constitutional: This is a well developed, well nourished patient who is awake, alert, rn and in no acute distress. Head/Face: Normocephalic, atraumatic. ENT: dry MM Cardiovascular: Regular rate and rhythm. No pulse deficits. Respiratory: No increased work of breathing, no retractions or nasal flaring. Abdomen/GI: soft, mild left sided abd tenderness, no rebound Skin: Warm, dry MS/ Extremity: Pulses equal, no cyanosis. Neuro: Awake and alert, GCS 15 Vital Signs: 08:05 BP 154 / 108; Pulse 104; Resp 18; Temp 97.2; Pulse Ox 100% on R/A; Weight 97.52 kg; hb Height 5 ft. 7 in. ; Pain 6/10; 08:30 BP 121 / 86; Pulse 86; Resp 16; Pulse Ox 99% on R/A; db 09:30 BP 129 / 79; Pulse 66; Resp 16; Pulse Ox 100% on R/A; db 08:05 Body Mass Index 33.67 (97.52 kg, 170.18 cm) hb 08:05 Pain Scale: Adult hb MDM: 08:09 Patient medically screened. rn 09:47 Differential diagnosis: Nonspecific abd pain, gastritis, appendicitis, diverticulitis, rn viral gastroenteritis, gastroenteritis, colitis. Data reviewed: vital signs, nurses notes, lab test result(s), radiologic studies, CT scan, and as a result, I will discharge patient. Counseling: I had a detailed discussion with the patient and/or guardian regarding: the historical points, exam findings, and any diagnostic results supporting the discharge/admit diagnosis, lab results, radiology results, the need for outpatient follow up, to return to the emergency department if symptoms worsen or persist or if there are any questions or concerns that arise at home. Response to treatment: the patient's symptoms have mildly improved after treatment, and as a result, I will discharge patient. Special discussion: Based on the patient's Hx, exam, and Dx evaluation, there is no indication for emergent surgery or inpatient Tx. It is understood by the patient/guardian that if the Sx's persist or worsen they need to return immediately for re-evaluation. I discussed with the patient/guardian in detail that at this point there is no indication for admission to the hospital. It is understood, however, that if the symptoms persist or worsen the patient needs to return immediately for re-evaluation. Based on the history and exam findings, there is no indication for further emergent testing or inpatient evaluation. I discussed with the patient/guardian the need to see the primary care provider for further evaluation of the symptoms. 09:47 I considered the following discharge prescriptions or medication management in the rn emergency department Antivirals: At this time, antivirals are not recommended, Medications were administered in the Emergency Department. See JAN. 01/16 08:11 Order name: CBC with Diff; Complete Time: 09:07 rn 01/16 08:11 Order name: CMP; Complete Time: 09:07 rn 01/16 08:11 Order name: Lipase; Complete Time: 09:07 rn 01/16 08:11 Order name: COVID-19/FLU A+B; Complete Time: 09:17 rn 01/16 08:20 Order name: CT Abd/Pelvis - IV Contrast Only; Complete Time: 09:46 rn 01/16 08:11 Order name: IV Saline Lock; Complete Time: 08:35 rn 01/16 08:11 Order name: Labs collected and sent; Complete Time: 08:35 rn Administered Medications: 08:28 Drug: NS 0.9% IV 1000 ml Route: IV; Rate: 1 bolus; Site: right antecubital; db 09:48 Follow up: Response: No adverse reaction; IV Status: Completed infusion; IV Intake: db 1000ml 08:34 Drug: Ondansetron IVP 4 mg Route: IVP; Site: right antecubital; db 09:48 Follow up: Response: No adverse reaction db 09:35 Drug: morphine IVP or IV 4 mg Route: IVP; Infused Over: 4 mins; Site: right antecubital;db 10:15 Follow up: Response: No adverse reaction db 09:38 Drug: Potassium Chloride PO 40 mEq Route: PO; db 10:15 Follow up: Response: No adverse reaction db Disposition Summary: 01/16/23 09:49 Discharge Ordered Location: Home rn Problem: new rn Symptoms: have improved rn Condition: Stable rn Diagnosis - Abdominal pain, unspecified rn - Infectious gastroenteritis and colitis, unspecified rn Followup: rn - With: Private Physician - When: As needed - Reason: Recheck today's complaints, Re-evaluation by your physician Discharge Instructions: - Discharge Summary Sheet rn - Diarrhea, Adult rn - Nausea and Vomiting, Adult rn - Colitis rn Forms: - Medication Reconciliation Form rn - Thank You Letter rn - Antibiotic employee benefits attorney - Prescription Opioid Use rn - Work release form db Prescriptions: - ondansetron 4 mg Oral Tablet,disintegrating - take 1 tablet by ORAL route every 8 hours As needed; 10 tablet; Refills: 0, rn Product Selection Permitted - Bactrim DS 800-160 mg Oral Tablet - take 1 tablet by ORAL route every 12 hours for 5 days; 10 tablet; Refills: 0, rn Product Selection Permitted Signatures: Dispatcher [employer] Tyler De Leon MD MD rn Baxter, Heather, RN RN Saranya Salazar RN RN db
== END 2023-01-16 10:12 | disposition home or self-care (01) ==
LOC: ER 08:00
DX: A09 Infectious gastroenteritis and colitis, unspecified (principal); Z20.822 Contact with and (suspected) exposure to COVID-19; Z91.018 Allergy to other foods
CPT/HCPCS: 96361; 85025; 36415; 83690; 80053; 0240U; 74177; 96375; 96374; 99284; Q9967

== ENCOUNTER 2023-03-14 11:42 | Emergency (ER) | payer BC ==
[2023-03-14 12:34] LABS: Absolute Lymphocytes (CBC) 1.7 K/uL (0.7-4.9); Hematocrit 44.6 % (39.6-49.0); Lymphocytes % 11.3 % (15.3-44.8); MCV 93.3 fL (80-100); MPV 8.6 fL (7.6-11.3); RBC Red Blood Cell Count 4.78 M/uL (4.33-5.43)
[2023-03-14] MEDS ORDERED: dexAMETHasone 10 MG/ML VIAL ONE (12:34)
[2023-03-14] MEDS ORDERED: NA CHLORIDE 0.9% 1,000 ML ONE ×2 (12:34→14:05)
[2023-03-14] MEDS ORDERED: MAGNESIUM SULFATE 1 gm IVPB 1 GM/100 ML BAG IV ONE (12:34)
--- NOTE | 2023-03-14 12:39 | RAD REPORT ---
EXAM DESCRIPTION: RADChest Single View03/14/2023 12:05 pm CLINICAL HISTORY: COUGH COMPARISON: Chest Single View dated 03/18/2022; Chest Single View dated 12/25/2021; Chest Pa And Lat (2 Views) dated 11/26/2021; Chest Pa And Lat (2 Views) dated 10/27/2019 TECHNIQUE: Portable AP view of the chest. FINDINGS: The lungs are clear. No pneumothorax or effusion. The cardiomediastinal contours are unrem arkable. IMPRESSION: No acute cardiopulmonary process.
[2023-03-14] MEDS ORDERED: ALBUTEROL 2.5 MG/3 ML NEB SOL ONE (12:50)
[2023-03-14 12:53] LABS: Albumin 3.7 g/dL (3.4-5.0); Bilirubin Total 0.7 mg/dL (0.2-1.0); Potassium 3.2 mEq/L (3.5-5.1); Troponin High Sensitivity 8.3 pg/mL (<58.9)
[2023-03-14] MEDS ORDERED: HYDROCODONE/CHLORPHEN 5 ML/OSYR ONE (13:19)
[2023-03-14] MEDS ORDERED: NA CHLORIDE 0.9% 50 ML ONE (14:05)
[2023-03-14] MEDS ORDERED: AZITHROMYCIN 250 MG TAB ONE (14:05)
[2023-03-14] MEDS ORDERED: POTASSIUM 25 MEQ EFFERV TAB ONE (14:05)
[2023-03-14] MEDS ORDERED: CEFTRIAXONE 1000 MG/VIAL ONE (14:05)
--- NOTE | 2023-03-14 14:37 | ER ---
Nurse's Notes [facility] Name: Sajan Meléndez Age: 47 yrs Sex: Male : 1975 Arrival Date: 03/14/2023 Time: 11:42 Bed Treatment Private MD: Diagnosis: Other pneumonia, unspecified organism;Unspecified asthma with (acute) exacerbation Presentation: 03/14 11:49 Chief complaint: Patient states: SOB, cough/congestion, pain with cough X 7 days also iw has left ear pain. Initial Sepsis Screen: Does the patient meet any 2 criteria? No. Patient's initial sepsis screen is negative. Does the patient have a suspected source of infection? No. Patient's initial sepsis screen is negative. Risk Assessment: Do you want to hurt yourself or someone else? Patient reports no desire to harm self or others. 11:49 Method Of Arrival: Ambulatory iw 11:51 Coronavirus screen: Client presents with at least one sign or symptom that may indicate iw coronavirus-19. Ebola Screen: Patient negative for fever greater than or equal to 101.5 degrees Fahrenheit, and additional compatible Ebola Virus Disease symptoms Patient denies exposure to infectious person. Patient denies travel to an Ebola-affected area in the 21 days before illness onset. No symptoms or risks identified at this time. Onset of symptoms was March 07, 2023. 11:51 Acuity: DELMI 3 iw Triage Assessment: 15:32 General: Appears ill, Behavior is calm, cooperative. Pain: Complains of pain in ap3 generalized body aches. 15:33 EENT: Reports pain in left ear and right ear when swallowing. ap3 Historical: - Allergies: 11:50 Poultry; iw - Home Meds: 11:50 Klonopin 1 mg Oral tab 1 tab 2 times per day [Active]; Primidone Oral [Active]; iw propranolol 120 mg Oral Cs24 1 cap once daily [Active]; Topamax 100 mg Oral tab 1 tab 2 times per day [Active]; - PMHx: 11:50 Anxiety; ESSENTIAL TREMORS; PTSD; ulcerative colitis; iw - Immunization history:: Client reports receiving the 2nd dose of the Covid vaccine. - Social history:: Smoking status: unknown. Screenin:58 [facility] ED Fall Risk Assessment (Adult) History of falling in the last 3 months, ap3 including since admission No falls in past 3 months (0 pts). Abuse screen: Denies threats or abuse. Nutritional screening: No deficits noted. Tuberculosis screening: No symptoms or risk factors identified. Vital Signs: 11:51 Pulse 110; Resp 20; Temp 99.1; Pulse Ox 98% on R/A; Weight 86.18 kg; Height 5 ft. 7 in. iw ; 11:58 BP 122 / 71; ap3 13:07 BP 110 / 85; Pulse 93; Pulse Ox 99% on R/A; ap3 14:57 BP 107 / 73; Pulse 90; Pulse Ox 98% on R/A; ap3 15:25 BP 119 / 72; Pulse 77; Pulse Ox 98% on R/A; ap3 11:51 Body Mass Index 29.76 (86.18 kg, 170.18 cm) iw ED Course: 11:43 Patient arrived in ED. rg4 11:44 Kori Bill FNP-C is [facility]. snw 11:44 Max Loera MD is Attending Physician. snw 11:51 Triage completed. iw 11:51 Arm band placed on. iw 11:57 Luz Witt, RN is Primary Nurse. ap3 12:07 Chest Single View XRAY In Process Unspecified. EDMS 12:21 EKG done, by ED staff, COVID swab sent to lab. Flu and/or RSV swab sent to lab. tm3 12:24 Flu Sent. ap3 12:25 COVID-19 SARS RT PCR Sent. ap3 15:32 Patient has correct armband on for positive identification. Placed in gown. Bed in low ap3 position. Call light in reach. Side rails up X 1. grey tender on. Pulse ox on. NIBP on. 15:32 No provider procedures requiring assistance completed. ap3 15:48 IV discontinued, intact, bleeding controlled, No redness/swelling at site. Pressure kc6 dressing applied. Administered Medications: 12:38 Drug: NS 0.9% IV (30 ml/kg) 30 ml/kg Route: IV; Rate: bolus; Site: right antecubital; ap3 12:38 Drug: Magnesium Sulfate IVPB 1 grams Route: IVPB; Infused Over: 1 hrs; Site: right ap3 antecubital; 14:49 Follow up: IV Status: Infusion continued ap3 12:38 Drug: Decadron - Dexamethasone IVP 10 mg Route: IVP; Site: right antecubital; ap3 13:19 Follow up: Response: No adverse reaction ap3 12:45 Drug: DuoNeb Nebulize (2.5 mg - 0.5 mg) 3 ml Route: Nebulizer; ap3 13:55 Follow up: Response: No adverse reaction ap3 13:19 Drug: Tussionex Pennkinetic ER PO Suspension 5 ml Route: PO; ap3 14:49 Follow up: Response: No adverse reaction ap3 14:07 Drug: Potassium PO Effervescent Tablet 50 mEq Route: PO; ap3 14:50 Follow up: Response: No adverse reaction ap3 14:07 Drug: Rocephin IV 1 grams Route: IV; Rate: calculated rate; Site: right antecubital; ap3 14:49 Follow up: IV Status: Completed infusion ap3 14:07 Drug: AZITHromycin PO 500 mg Route: PO; ap3 14:52 Follow up: Response: No adverse reaction ap3 14:53 Drug: NS 0.9% IV (30 ml/kg) 30 ml/kg Route: IV; Rate: bolus; Site: right antecubital; ap3 Medication: 15:33 VIS not applicable for this client. ap3 Outcome: 14:37 Discharge ordered by . snw 15:33 Discharge instructions given to patient, Instructed on discharge instructions, follow ap3 up and referral plans. medication usage, Demonstrated understanding of instructions, follow-up care, medications, Prescriptions given X 7 15:33 Discharged to home ambulatory. ap3 15:33 Condition: good 15:48 Patient left the ED. kc6 Signatures: Dispatcher [employer] EDMS Kalia Sparksi tm3 Kori Bill, CABLEMAN-C CABLEMAN-Csnw Preeti Webb RN RN iw Garcia, Rubi rg4 Luz Witt RN RN ap3 Kim Mello RN RN kc6 Corrections: (The following items were deleted from the chart) 11:52 11:51 Pulse 110bpm; Resp 20bpm; Pulse Ox 98% RA; 86.18 kg; Height 5 ft. 7 in.; BMI: iw 29.7; iw
--- NOTE | 2023-03-14 14:37 | EDPHYS ---
Physician Documentation [facility] Name: Sajan Meléndez Age: 47 yrs Sex: Male : 1975 Arrival Date: 03/14/2023 Time: 11:42 Bed Treatment Private MD: ED Physician Max Loera HPI: 03/14 11:57 This 47 yrs old Male presents to ER via Ambulatory with complaints of Cough, Ear Pain, snw Congestion, Breathing Difficulty. 11:57 The patient or guardian reports airway noise, cough, flu symptoms, arthralgias, snw low-grade fever, myalgias, no appetite, hoarse voice. Onset: The symptoms/episode began/occurred acutely, 7 day(s) ago, and became persistent. Severity of symptoms: At their worst the symptoms were moderate, in the emergency department the symptoms are unchanged. Associated signs and symptoms: Pertinent positives: sore throat. The patient has not experienced similar symptoms in the past. The patient has not recently seen a physician, and does not have an established primary care provider. Historical: - Allergies: 11:50 Poultry; iw - Home Meds: 11:50 Klonopin 1 mg Oral tab 1 tab 2 times per day [Active]; Primidone Oral [Active]; iw propranolol 120 mg Oral Cs24 1 cap once daily [Active]; Topamax 100 mg Oral tab 1 tab 2 times per day [Active]; - PMHx: 11:50 Anxiety; ESSENTIAL TREMORS; PTSD; ulcerative colitis; iw - Immunization history:: Client reports receiving the 2nd dose of the Covid vaccine. - Social history:: Smoking status: unknown. ROS: 11:56 Eyes: Negative for injury, pain, redness, and discharge. snw 11:56 Neck: Negative for injury, pain, and swelling. 11:56 Abdomen/GI: Negative for abdominal pain, nausea, vomiting, diarrhea, and constipation, Back: Negative for injury and pain, : Negative for injury, bleeding, discharge, and swelling, MS/Extremity: Negative for injury and deformity, Skin: Negative for injury, rash, and discoloration, Neuro: Negative for headache, weakness, numbness, tingling, and seizure, Psych: Negative for depression, anxiety, suicide ideation, homicidal ideation, and hallucinations. 11:56 Constitutional: Positive for body aches, chills, malaise, poor PO intake. 11:56 ENT: Positive for sinus congestion, sore throat. 11:56 Cardiovascular: Positive for chest pain, with cough. 11:56 Respiratory: Positive for cough, shortness of breath, wheezing. Exam: 11:54 Head/Face: Normocephalic, atraumatic. Eyes: Pupils equal round and reactive to light, snw extra-ocular motions intact. Lids and lashes normal. Conjunctiva and sclera are non-icteric and not injected. Cornea within normal limits. Periorbital areas with no swelling, redness, or edema. 11:54 Neck: Trachea midline, no thyromegaly or masses palpated, and no cervical lymphadenopathy. Supple, full range of motion without nuchal rigidity, or vertebral point tenderness. No Meningismus. Chest/axilla: Normal chest wall appearance and motion. Nontender with no deformity. No lesions are appreciated. 11:54 Abdomen/GI: Soft, non-tender, with normal bowel sounds. No distension or tympany. No guarding or rebound. No evidence of tenderness throughout. Back: No spinal tenderness. No costovertebral tenderness. Full range of motion. Skin: Warm, dry with normal turgor. Normal color with no rashes, no lesions, and no evidence of cellulitis. MS/ Extremity: Pulses equal, no cyanosis. Neurovascular intact. Full, normal range of motion. Neuro: Awake and alert, GCS 15, oriented to person, place, time, and situation. Cranial nerves II-XII grossly intact. Motor strength 5/5 in all extremities. Sensory grossly intact. Cerebellar exam normal. Normal gait. Psych: Awake, alert, with orientation to person, place and time. Behavior, mood, and affect are within normal limits. 11:54 Constitutional: The patient appears alert, anxious. 11:54 ENT: TM's: erythema, that is moderate, on the left, Nose: is normal, Posterior pharynx: erythema, that is moderate, Voice: is hoarse. 11:54 Cardiovascular: Rate: tachycardic, Heart sounds: normal. 11:54 Respiratory: the patient does not display signs of respiratory distress, Respirations: shallow respirations, Breath sounds: bronchial sounds, decreased breath sounds, that are moderate, wheezing: that is moderate, is heard diffusely. Vital Signs: 11:51 Pulse 110; Resp 20; Temp 99.1; Pulse Ox 98% on R/A; Weight 86.18 kg; Height 5 ft. 7 in. iw ; 11:58 BP 122 / 71; ap3 13:07 BP 110 / 85; Pulse 93; Pulse Ox 99% on R/A; ap3 14:57 BP 107 / 73; Pulse 90; Pulse Ox 98% on R/A; ap3 15:25 BP 119 / 72; Pulse 77; Pulse Ox 98% on R/A; ap3 11:51 Body Mass Index 29.76 (86.18 kg, 170.18 cm) iw MDM: 11:47 Patient medically screened. snw 14:40 Differential Diagnosis: Bronchitis Influenza Upper Respiratory Infection Sinusitis snw Pharyngitis Otitis Media Asthma Exacerbation Pneumonia. Data reviewed: vital signs, nurses notes, lab test result(s), EKG, radiologic studies. Counseling: I had a detailed discussion with the patient and/or guardian regarding: the historical points, exam findings, and any diagnostic results supporting the discharge/admit diagnosis, lab results, radiology results, the need for outpatient follow up, for definitive care, to return to the emergency department if symptoms worsen or persist or if there are any questions or concerns that arise at home. Response to treatment: the patient's symptoms have markedly improved after treatment, continues with wheezing but states he is significantly less short of breath. Special discussion: I have referred the patient to see his PCP for further evaluation of high blood pressure. Based on the history and exam findings, there is no indication for further emergent testing or inpatient evaluation. I discussed with the patient/guardian the need to see the primary care provider for further evaluation of the symptoms. 15:15 Awaiting: completion of IVF, pt looks and states feels better. w 03/14 11:54 Order name: Blood Culture Adult (2) snw 03/14 11:54 Order name: CBC with Diff; Complete Time: 12:45 snw 03/14 11:54 Order name: CMP; Complete Time: 12:53 snw 03/14 11:54 Order name: Lactate w/ 2H reflex if indic.; Complete Time: 12:54 snw 03/14 11:54 Order name: Flu; Complete Time: 13:16 snw 03/14 11:54 Order name: COVID-19 SARS RT PCR; Complete Time: 13:22 snw 03/14 11:54 Order name: CPK; Complete Time: 12:53 snw 03/14 11:54 Order name: Troponin High Sensitivity; Complete Time: 12:53 snw 03/14 11:54 Order name: Chest Single View XRAY; Complete Time: 12:45 snw 03/14 11:54 Order name: EKG; Complete Time: 11:55 snw 03/14 11:54 Order name: Accucheck; Complete Time: 13:54 snw 03/14 11:54 Order name: Cardiac monitoring; Complete Time: 12:24 snw 03/14 11:54 Order name: EKG - Nurse/Tech; Complete Time: 12:24 snw 03/14 11:54 Order name: IV Saline Lock - Large Bore; Complete Time: 12:24 snw 03/14 11:54 Order name: Labs collected and sent; Complete Time: 12:24 snw 03/14 11:54 Order name: O2 Per Protocol; Complete Time: 11:58 snw 03/14 11:54 Order name: O2 Sat Monitoring; Complete Time: 11:58 snw 03/14 11:54 Order name: Vital Signs; Complete Time: 11:58 snw EC:15 Rate is 100 beats/min. Rhythm is regular. QRS [place] is Normal. OR interval is normal. snw QRS interval is normal. QT interval is normal. Clinical impression: Sinus tachycardia. Administered Medications: 12:38 Drug: NS 0.9% IV (30 ml/kg) 30 ml/kg Route: IV; Rate: bolus; Site: right antecubital; ap3 12:38 Drug: Magnesium Sulfate IVPB 1 grams Route: IVPB; Infused Over: 1 hrs; Site: right ap3 antecubital; 14:49 Follow up: IV Status: Infusion continued ap3 12:38 Drug: Decadron - Dexamethasone IVP 10 mg Route: IVP; Site: right antecubital; ap3 13:19 Follow up: Response: No adverse reaction ap3 12:45 Drug: DuoNeb Nebulize (2.5 mg - 0.5 mg) 3 ml Route: Nebulizer; ap3 13:55 Follow up: Response: No adverse reaction ap3 13:19 Drug: Tussionex Pennkinetic ER PO Suspension 5 ml Route: PO; ap3 14:49 Follow up: Response: No adverse reaction ap3 14:07 Drug: Potassium PO Effervescent Tablet 50 mEq Route: PO; ap3 14:50 Follow up: Response: No adverse reaction ap3 14:07 Drug: Rocephin IV 1 grams Route: IV; Rate: calculated rate; Site: right antecubital; ap3 14:49 Follow up: IV Status: Completed infusion ap3 14:07 Drug: AZITHromycin PO 500 mg Route: PO; ap3 14:52 Follow up: Response: No adverse reaction ap3 14:53 Drug: NS 0.9% IV (30 ml/kg) 30 ml/kg Route: IV; Rate: bolus; Site: right antecubital; ap3 Disposition Summary: 03/14/23 14:37 Discharge Ordered Location: Home snw Condition: Stable snw Diagnosis - Other pneumonia, unspecified organism snw - Unspecified asthma with (acute) exacerbation snw Followup: snw - With: Emergency Department - When: As needed - Reason: Trouble breathing, Worsening of condition Followup: snw - With: Private Physician - When: 1 week - Reason: Recheck today's complaints, Continuance of care, Re-evaluation by your physician Discharge Instructions: - Discharge Summary Sheet snw - Community-Acquired Pneumonia, Adult snw - How to Use a Nebulizer, Adult snw Forms: - Work release form snw - Medication Reconciliation Form snw - Thank You Letter snw - Antibiotic Education snw - Prescription Opioid Use snw Prescriptions: - albuterol sulfate 90 mcg/actuation Inhalation HFA Aerosol Inhaler - inhale 1 inhalation by INHALATION route every 4 to 6 hours; 1 unit; Refills: 0, snw Product Selection Permitted - Zyrtec 10 mg Oral Tablet - take 1 tablet by ORAL route once daily As needed; 20 tablet; Refills: 0, snw Product Selection Permitted - Albuterol Sulfate 2.5 mg /3 mL (0.083 %) Inhalation Solution for Nebulization - inhale 1 unit by NEBULIZATION route every 8 hours As needed 2 boxes; 2 snw Unspecified; Refills: 0, Product Selection Permitted - Prednisone 20 mg Oral Tablet - take 2 tablets by ORAL route once daily for 5 days; 10 tablet; Refills: 0, snw Product Selection Permitted - Pepcid 20 mg Oral Tablet - take 1 tablet by ORAL route once daily; 20 tablet; Refills: 0, Product snw Selection Permitted - Zithromax 500 mg Oral Tablet - take 1 tablet by ORAL route once daily for 5 days; 5 tablet; Refills: 0, snw Product Selection Permitted Signatures: Dispatcher [employer] Kori Mcmillan FNP-C DIGESTER CAPPER-Csnw Preeti Webb, ALEXANDREA LECHUGA iw Luz Witt RN RN ap3
[2023-03-14 15:53] VITALS: TEMP 99.1
[2023-03-14 15:58] VITALS: O2SAT 98
[2023-03-14 15:59] VITALS: BP 119/72
--- NOTE | 2023-03-15 07:11 | EKG ---
Test Date: 2023-03-14 Test Time: 12:19:33 Public Health Technician: TM MEASUREMENT RESULTS: Intervals: Rate: 100 SC: 128 QRSD: 84 QT: 346 QTc: 446 [place]: P: 72 SC: 128 QRS: 65 T: 40 INTERPRETIVE STATEMENTS: Normal sinus rhythm Normal ECG Compared to ECG 02/10/2018 19:14:21 No significant changes Electronically Signed On 03-15-23 07:09:33 CDT by Carson Casey
== END 2023-03-14 15:48 | disposition home or self-care (01) ==
LOC: ER 11:42
DX: J18.8 Other pneumonia, unspecified organism (principal); J45.901 Unspecified asthma with (acute) exacerbation; Z20.822 Contact with and (suspected) exposure to COVID-19; Z91.018 Allergy to other foods
CPT/HCPCS: 96365; 93005; 87040 ×2; 85025; 36415; 82550; 83605; 84484; 80053; 87804 ×2; 71045; 94640; 96375; 99285; U0003; J3475; J7613; J1100; J7030 ×2; J0696

== ENCOUNTER → 2024-01-30 | Emergency (ER) | payer BC, SELFPAY ==
[~2024-01-30] MED LIST: KETOROLAC 30 MG/ML INJ ONE; POTASSIUM CL SA 10 MEQ TAB PO ONE
[2024-01-30 20:12] LABS: Absolute Basophils 0.1 K/uL (0-0.5); Absolute Eosinophils 0.6 K/uL (0-0.5); Absolute Lymphocytes (CBC) 2.3 K/uL (0.7-4.9); Absolute Monocytes 0.8 K/uL (0.1-1.3); Absolute Neutrophil 4.4 K/uL (1.8-8.0); Basophils % 1.1 % (0-1.3); Hematocrit 37.9 % (39.6-49.0); Lymphocytes % 28.6 % (15.3-44.8); MCH 30.6 pg (27.0-35.0); MCHC 34.3 g/dL (32.0-36.0); MCV 89.2 fL (80-100); MPV 8.7 fL (7.6-11.3); Monocytes % 9.9 % (3.3-12.3); Neutrophils % 53.4 % (41.7-73.7); Nucleated Red Blood Cells % 0.1 % (0-0); Platelets 233 thou/uL (152-406); RBC Red Blood Cell Count 4.25 M/uL (4.33-5.43); Red Cell Distribution Width 12.5 % (12.1-15.2)
--- NOTE | 2024-01-30 20:26 | RAD REPORT ---
EXAM DESCRIPTION: RAD - Chest Single View - 01/30/2024 8:19 pm CLINICAL HISTORY: SWELLING Chest pain. COMPARISON: Chest Single View dated 03/14/2023; Chest Single View dated 03/18/2022; Chest Single View da nikolas 12/25/2021; Chest Pa And Lat (2 Views) dated 11/26/2021 FINDINGS: Portable technique limits examination quality. The lungs are grossly clear. The heart is normal in size. No displaced fractures. IMPRESSION: No acute intrathoracic process suspected.
[2024-01-30 20:29] LABS: Troponin High Sensitivity 30.9 pg/mL (<58.9)
--- NOTE | 2024-01-30 20:41 | RAD REPORT ---
EXAM DESCRIPTION: US - Extrem Venous W Compress David - 01/30/2024 8:33 pm CLINICAL HISTORY: SWELLING Bilateral leg edema and swelling. COMPARISON: No comparisons TECHNIQUE: Real-time sonographic interrogation of the left and right lower extremity deep venous sys tems was performed. FINDINGS: Normal compressibility, flow augmentation, phasic flow and spontaneous flow is identified in both the left and right lower extremity deep venous systems. IMPRESSION: No sonographic evidence of left or right lower extremity deep venous thrombosis.
--- NOTE | 2024-01-30 20:51 | EDPHYS ---
Physician Documentation [facility] Name: Sajan Meléndez Age: 48 yrs Sex: Male : 1975 Arrival Date: 01/30/2024 Time: 19:30 Bed 14 Private MD: ED Physician Juan George HPI: 01/29 20:49 This 48 yrs old Male presents to ER via Ambulatory with complaints of Leg Swelling. kb 20:49 Patient is a 48-year-old male who presents for lower extremity swelling that started kb today. States he felt like his hands were swollen as well at work and that is boots were tighter than normal. When he got home and took his boots off he noticed the swelling so he came in for evaluation. Denies shortness of breath or chest pain.. Historical: - Allergies: 19:43 Poultry; lg3 - PMHx: 19:43 Anxiety; ESSENTIAL TREMORS; PTSD; ulcerative colitis; lg3 - PSHx: 19:43 right foot (ulcerative colitis); Appendectomy; lg3 - Immunization history:: Adult Immunizations up to date, Client reports having NOT received the Covid vaccine. Flu vaccine is not up to date. - Social history:: Smoking status: Patient reports the use of cigarette tobacco products, denies chronic smoking, but will smoke occasionally, Patient/guardian denies using alcohol, street drugs. ROS: 20:48 Constitutional: As per HPI kb Exam: 20:48 Constitutional: This is a well developed, well nourished patient who is awake, alert, kb and in no acute distress. Head/Face: Normocephalic, atraumatic. ENT: Moist Mucous membranes Cardiovascular: Regular rate Respiratory: Respirations even and unlabored. No increased work of breathing. Talking in full sentences Abdomen/GI: Soft, non-tender. No distention Skin: Warm, dry with normal turgor. Normal color. Neuro: Awake and alert, GCS 15, oriented to person, place, time, and situation. Moves all extremities. Normal gait. 20:48 Musculoskeletal/extremity: Bilateral lower extremity edema without erythema or warmth. Vital Signs: 19:40 BP 149 / 76; Pulse 89; Resp 16 S; Temp 98.4(O); Pulse Ox 99% on R/A; Weight 85.28 kg lg3 (R); Height 5 ft. 7 in. (R); Pain 5/10; 20:15 BP 144 / 91; Pulse 84; Resp 16; Pulse Ox 100% on R/A; me1 20:54 Pain 3/10; me1 19:40 Body Mass Index 29.44 (85.28 kg, 170.18 cm) lg3 19:40 Pain Scale: Adult lg3 20:54 Pain Scale: Adult me1 MDM: 19:41 Patient medically screened. kb 20:49 Differential diagnosis: Acute renal failure, CHF, DVT. Data reviewed: vital signs, kb nurses notes. Counseling: I had a detailed discussion with the patient and/or guardian regarding the historical points, exam findings, and any diagnostic results supporting the discharge/admit diagnosis, lab results, radiology results, the need for outpatient follow up, a family practitioner, to return to the emergency department if symptoms worsen or persist or if there are any questions or concerns that arise at home. 01/29 19:46 Order name: Basic Metabolic Panel; Complete Time: 20:32 kb 01/29 19:46 Order name: CBC with Diff; Complete Time: 20:41 kb 01/29 19:46 Order name: Magnesium; Complete Time: 20:32 kb 01/29 19:46 Order name: NT PRO-BNP; Complete Time: 20:32 kb 01/29 19:46 Order name: Troponin HS; Complete Time: 20:32 kb 01/29 19:46 Order name: XRAY Chest (1 view); Complete Time: 20:28 kb 01/29 19:46 Order name: US Extremity Venous W Compression David; Complete Time: 20:45 kb 01/29 19:46 Order name: EKG; Complete Time: 19:46 kb 01/29 19:46 Order name: Cardiac monitoring; Complete Time: 20:44 kb 01/29 19:46 Order name: EKG - Nurse/Tech; Complete Time: 20:44 kb 01/29 19:46 Order name: IV Saline Lock; Complete Time: 20:25 kb 01/29 19:46 Order name: Labs collected and sent; Complete Time: 20:25 kb 01/29 19:46 Order name: O2 Per Protocol; Complete Time: 20:25 kb 01/29 19:46 Order name: O2 Sat Monitoring; Complete Time: 20:25 kb Administered Medications: 20:50 Drug: Potassium Chloride PO 40 mEq PO once Route: PO; me1 20:51 Follow up: Response: No adverse reaction me1 20:50 Drug: Ketorolac IVP 15 mg IVP once Route: IVP; Site: right upper arm; me1 20:54 Follow up: Pain 01/17 Adult; Response: No adverse reaction; Pain is decreased me1 Disposition Summary: 01/30/24 20:50 Discharge Ordered Notes: Location: Home kb Condition: Stable kb Diagnosis - Edema, unspecified kb Followup: kb - With: Emergency Department - When: As needed - Reason: Worsening of condition Followup: kb - With: Private Physician - When: 2 - 3 days - Reason: Recheck today's complaints, Continuance of care, Re-evaluation by your physician Discharge Instructions: - Discharge Summary Sheet kb - Peripheral Edema kb Forms: - Medication Reconciliation Form kb - Thank You Letter kb - Antibiotic Education kb - Prescription Opioid Use kb - Patient Portal Instructions kb - Leadership Thank You Letter kb Signatures: Dispatcher [employer] Claudette Regalado, IN HOUSE CRA-C IN HOUSE CRA-Amelia Rosenthal, RN RN lg3 Mallorie Ellis RN RN me1
--- NOTE | 2024-01-30 20:51 | ER ---
Nurse's Notes [facility] Name: Sajan Meléndez Age: 48 yrs Sex: Male : 1975 Arrival Date: 01/30/2024 Time: 19:30 Bed 14 Private MD: Diagnosis: Edema, unspecified Presentation: 01/29 19:40 Chief complaint: Patient states: bilateral feet pain beginning this morning. noticed lg3 bilateral swelling later this afternoon. pain 5/10. Coronavirus screen: Client denies travel out of the [place] in the last 14 days. At this time, the client does not indicate any symptoms associated with coronavirus-19. Ebola Screen: No symptoms or risks identified at this time. Initial Sepsis Screen: Does the patient meet any 2 criteria? No. Patient's initial sepsis screen is negative. Does the patient have a suspected source of infection? No. Patient's initial sepsis screen is negative. Risk Assessment: Do you want to hurt yourself or someone else? Patient reports no desire to harm self or others. Onset of symptoms was January 30, 2024. 19:40 Method Of Arrival: Ambulatory lg3 19:40 Acuity: DELMI 3 lg3 Triage Assessment: 19:43 General: Appears in no apparent distress. uncomfortable, Behavior is calm, cooperative. lg3 Pain: Complains of pain in right foot and left foot Pain does not radiate. EENT: No deficits noted. No signs and/or symptoms were reported regarding the EENT system. Neuro: No deficits noted. White Agitation-Sedation Scale (RASS): 0 - Alert and Calm Level of Consciousness is awake, alert, obeys commands, Oriented to person, place, time, situation. Cardiovascular: No deficits noted. Denies chest pain, shortness of breath, Capillary refill < 3 seconds Clubbing of nail beds is absent JVD is absent Patient's skin is warm and dry. Respiratory: No deficits noted. Airway is patent Respiratory effort is even, unlabored, Respiratory pattern is regular, agonal Denies shortness of breath. GI: No deficits noted. No signs and/or symptoms were reported involving the gastrointestinal system. : No deficits noted. No signs and/or symptoms were reported regarding the genitourinary system. Derm: No deficits noted. No signs and/or symptoms reported regarding the dermatologic system. Skin is intact, is healthy with good turgor, Skin is dry, Skin is normal, Skin temperature is warm. Musculoskeletal: Circulation, motion, and sensation intact. Range of motion: intact in all extremities, Swelling present in right foot and left foot. Historical: - Allergies: 19:43 Poultry; lg3 - PMHx: 19:43 Anxiety; ESSENTIAL TREMORS; PTSD; ulcerative colitis; lg3 - PSHx: 19:43 right foot (ulcerative colitis); Appendectomy; lg3 - Immunization history:: Adult Immunizations up to date, Client reports having NOT received the Covid vaccine. Flu vaccine is not up to date. - Social history:: Smoking status: Patient reports the use of cigarette tobacco products, denies chronic smoking, but will smoke occasionally, Patient/guardian denies using alcohol, street drugs. Screenin:26 [facility] ED Fall Risk Assessment (Adult) History of falling in the last 3 months, me1 including since admission No falls in past 3 months (0 pts) Confusion or Disorientation No (0 pts) Intoxicated or Sedated No (0 pts) Impaired Gait No (0 pts) Mobility Assist Device Used No (0 pt) Altered Elimination No (0 pt) Score/Fall Risk Level 0 - 2 = Low Risk Maintained a safe environment, Provided non-skid footwear, Hourly rounding (assess needs \T\ fall precautionary measures) done. Abuse screen: Denies threats or abuse. Nutritional screening: No deficits noted. Tuberculosis screening: No symptoms or risk factors identified. Assessment: 20:26 General: Appears uncomfortable, Behavior is calm, cooperative, appropriate for age, me1 Reports c/o bilateral foot pain that started this morning and later this afternoon noticed bilateral foot swelling. Pain: Complains of pain in left foot and right foot Pain does not radiate. Pain currently is 5 out of 10 on a pain scale. Quality of pain is described as tender, Pain began gradually, started this am. Is continuous. Neuro: Level of Consciousness is awake, alert, obeys commands, Oriented to person, place, time, situation, Appropriate for age. Cardiovascular: Patient's skin is warm and dry. Respiratory: Airway is patent Trachea midline Respiratory effort is even, unlabored, Respiratory pattern is regular, symmetrical. GI: No deficits noted. : No deficits noted. Derm: Skin is intact, is healthy with good turgor, Skin is pink, warm \T\ dry. Musculoskeletal: Circulation, motion, and sensation intact. Swelling present in left foot and right foot. 20:51 Reassessment: No changes from previously documented assessment. Patient and/or family me1 updated on plan of care and expected duration. Pain level reassessed. Patient is alert, oriented x 3, equal unlabored respirations, skin warm/dry/pink. Vital Signs: 19:40 BP 149 / 76; Pulse 89; Resp 16 S; Temp 98.4(O); Pulse Ox 99% on R/A; Weight 85.28 kg lg3 (R); Height 5 ft. 7 in. (R); Pain 5/10; 20:15 BP 144 / 91; Pulse 84; Resp 16; Pulse Ox 100% on R/A; me1 20:54 Pain 3/10; me1 19:40 Body Mass Index 29.44 (85.28 kg, 170.18 cm) lg3 19:40 Pain Scale: Adult lg3 20:54 Pain Scale: Adult me1 ED Course: 19:34 Patient arrived in ED. mr 19:41 Sal Claudette, [employer]-C is PHCP. kb 19:41 Juan George MD is Attending Physician. kb 19:43 Triage completed. lg3 19:43 Arm band placed on right wrist. lg3 20:15 Client placed on continuous cardiac and pulse oximetry monitoring. NIBP monitoring me1 applied. air sampling and monitoring on. Pulse ox on. NIBP on. 20:15 No provider procedures requiring assistance completed. me1 20:17 Mallorie Ellis, RN is Primary Nurse. me1 20:21 XRAY Chest (1 view) In Process Unspecified. EDMS 20:25 Initial lab(s) drawn, by ED staff, sent to lab. Inserted saline lock: 20 gauge in right me1 upper arm, using aseptic technique. 20:25 Basic Metabolic Panel Sent. me1 20:25 CBC with Diff Sent. me1 20:25 Magnesium Sent. me1 20:25 NT PRO-BNP Sent. me1 20:25 Troponin HS Sent. me1 20:26 Patient has correct armband on for positive identification. Bed in low position. Call me1 light in reach. Side rails up X 1. Provided Education on: POC. Verbalized understanding. 20:35 US Extremity Venous W Compression David In Process Unspecified. EDMS 20:44 EKG done, by ED staff, reviewed by Claudette ESPAÑA. me1 20:58 IV discontinued, intact, bleeding controlled, No redness/swelling at site. Pressure me1 dressing applied. Administered Medications: 20:50 Drug: Potassium Chloride PO 40 mEq PO once Route: PO; me1 20:51 Follow up: Response: No adverse reaction me1 20:50 Drug: Ketorolac IVP 15 mg IVP once Route: IVP; Site: right upper arm; me1 20:54 Follow up: Pain 01/17 Adult; Response: No adverse reaction; Pain is decreased me1 Medication: 20:26 VIS not applicable for this client. me1 Outcome: 20:50 Discharge ordered by . kb 20:58 Discharged to home ambulatory, me1 20:58 Condition: stable 20:58 Discharge instructions given to patient, Instructed on discharge instructions, follow up and referral plans. Demonstrated understanding of instructions, follow-up care, 20:58 Patient left the ED. me1 Signatures: Dispatcher [employer]OK Claudette Huang, [employer]ER-C [employer] REPAIRER-Ckb Miranda Brunson, Reg Reg mr Amelia Peraza, RN RN lg3 Mallorie Ellis, RN RN me1
[2024-01-30 21:34] VITALS: BP 144/91; TEMP 98.4; O2SAT 100
--- NOTE | 2024-02-02 14:23 | EKG ---
Test Date: 2024-01-30 Test Time: 19:36:54 Dry Cleaner Hand: LIZ MEASUREMENT RESULTS: Intervals: Rate: 80 NE: 148 QRSD: 92 QT: 392 QTc: 452 [place]: P: 75 NE: 148 QRS: 72 T: 39 INTERPRETIVE STATEMENTS: Normal sinus rhythm Normal ECG Compared to ECG 03/14/2023 12:19:33 No significant changes Electronically Signed On 02-02-24 14:15:40 CDT by Tomy Duncan
== END ==
LOC: ER 19:30
DX: R60.9 Edema, unspecified (principal)
CPT/HCPCS: 36415; 71045; 80048; 83735; 83880; 84484; 85025; 93005; 93970; 96374; 99285